=== PATIENT | male | born 1935 | race Caucasian/White ===

== ENCOUNTER 2017-09-30 09:44 | Emergency (ER) | payer MEDICARE, OTHER, SELFPAY ==
[2017-09-30 09:46] VITALS: BP 150/90; PULSE 78; RESP 18; TEMP 36.4; O2SAT 97; BMI 22.7
--- NOTE | 2017-09-30 10:15 | CT_ITS ---
STUDY: CT ABDOMEN AND PELVIS WITH CONTRAST REASON FOR EXAM: Male, 82 years old. Abdominal pain, bloody stool. No prior surgery.. RADIATION DOSAGE (If Supplied By Facility): CTDIvol = ( 14.77 ) mGy, DLP = ( 670.39 ) mGycm TECHNIQUE: Transaxial images were obtained from the dome of the diaphragm to the symphysis pubis with oral contrast. 100mL ml of Isovue 300 contrast was administered. Sagittal and coronal images were reconstructed. Individualized dose optimization techniques were used for this CT. COMPARISON: None. FINDINGS: The visualized lung bases are unremarkable. The visualized portions of the heart are within normal limits. Normal liver. Normal gallbladder and extrahepatic biliary system. Normal spleen. Normal pancreas. Normal bilateral adrenal glands. Normal right kidney. Normal left kidney. There is a small hiatal hernia. Normal small intestine. There are multiple colonic diverticula consistent with diverticulosis. There is non-visualization of the appendix. There is diffuse atherosclerotic calcification of the abdominal aorta, without a demonstrated aneurysm. Normal inferior vena cava. Normal retroperitoneum. Normal urinary bladder. Normal abdominal wall. There are diffuse degenerative changes of the visualized lumbar spine. CT/Abdomen/Pelvis WITH Contrast IMPRESSION: Extensive diverticulosis. Mild aortoiliac atherosclerosis. Electronically Signed: Lidya Fierro MD at 12:39 EST Tel , Service support ,
[2017-09-30] MEDS: 0.9% Normal Saline 1,000 ML 1000 ML IV (10:35)
[2017-09-30 10:40] LABS: Absolute Lymphocyte Count 0.49 X10^3/ul (0.83-4.51); Absolute Neutrophil Count 4.5 X10^3/uL (2.0-7.7); Basophil# 0.03 X10^3/uL; Basophil% 0.5 % (0-1); Eosinophil# 0.58 X10^3/uL; Eosinophils% 9.4 % (0-5); Hematocrit 43.5 % (40-54); Hemoglobin 14.1 g/dl (13.0-16.5); Lymphocyte # 0.49 X10^3/ul (4.0); Mean Corp Hgb Conc 32.4 g/gl (32-36); Mean Corpuscular Hgb 30.8 pg (27.0-32.0); Mean Platelet Vol. 8.7 fl (6.2-12.0); Monocyte# 0.58 X10^3/uL; Monocyte% 9.4 % (0-10); Neutrophil # 4.46 X10^3/uL (2.7-7.7); Neutrophil % 72.5 % (47-70); Platelet Count 180 K/mm3 (150-450); RBC Distribution Width CV 12.9 % (11.6-14.6); RBC Distribution Width SD 44.5 fl (35.1-43.9); Red Blood Count 4.58 M/mm3 (4.6-6.2); White Blood Count 6.2 K/mm3 (4.4-11.0)
[2017-09-30 10:41] LABS: Differential Indicated SCAN CRITERIA MET; POSITIVE COUNT NO; POSITIVE DIFFERENTIAL YES; POSITIVE MORPHOLOGY NO
[2017-09-30 10:46] LABS: Prothrombin Time (Protime)PT. 12.9 SECONDS (11.7-14.9)
[2017-09-30 10:56] LABS: ALB/GLOB Ratio 0.9 RATIO (0.9-2.4); AST(SGOT) 24 U/L (15-37); Alanine Aminotransfer ALT/SGPT 21 U/L (16-61); Albumin, Serum 3.3 g/dL (3.2-5.0); Alkaline Phosphatase 91 U/L (45-117); Anion Gap 7 (5-15); BUN 12 mg/dL (7-18); BUN/Creat Ratio 11.8 RATIO (10-20); Calcium,Total 8.8 mg/dL (8.5-10.1); Chloride 107 mmol/L (98-107); Creatinine, Serum 1.02 mg/dL (0.70-1.30); EST Glomerular Filtration Rate 75 mL/min (>60); Est Glom Filt Rate - Afr Amer 90 mL/min (>60); Estimated Creatinine Clearance 55.47 ml/min; Globulin 3.6 g/dL (2.2-4.2); Glucose 92 mg/dL (74-106); Lipase 136 U/L (73-393); Potassium 4.1 mmol/L (3.5-5.1); Protein, Total 6.9 g/dL (6.4-8.2); Sodium Level 142 mmol/L (136-145)
[2017-09-30 12:01] VITALS: BP 121/71; PULSE 78; RESP 16; O2SAT 98
[2017-09-30 12:04] LABS: Bacteria 0 SEEN /hpf (None Seen); Color, Urine Yellow (Yellow); Glucose, Dipstick Normal (Normal); Ketone-Dipstick Negative (Negative); Leukocyte Esterase-Dipstick Negative /ul (Negative); Mucous, Urine 0 SEEN /hpf (<or=2+); Nitrite-Dipstick Negative (Negative); Occult Blood-Urine Negative /ul (Negative); Protein-Dipstick Negative (Negative); Squamous Epithelial Cells - UA 0 SEEN /hpf (0-5); Urine Bilirubin Dipstick Negative (Negative); Urine Clarity Clear (Clear); Urine Urobilinogen Normal (Normal); White Blood Cells 0 SEEN /hpf (0-5)
[2017-09-30 12:14] LABS: Red Blood Cells-Urine 0 SEEN /hpf (0-5)
--- NOTE | 2017-09-30 13:47 | ED.RN ---
PT VERBALIZED HIS BM WAS MORE NORMAL WITH MINIMAL SIZE CLOT AND HE WAS COMFORTABLE GOING HOME. DR DONNY PEREYRA.
--- NOTE | 2017-09-30 14:10 | ED.VISSUMM ---
- ER Visit Summary Date of Service: 09/30/17 Chief Complaint: Abdominal pain diarrhea and bright red blood per rectum. History of Present Illness: The patient is a 82 M who presents with abdominal pain. It initially began yesterday. He describes this as gas pains. He complains of diffuse cramping abdominal pain which is currently only mild. He had several episodes of watery diarrhea yesterday and today. However earlier today he had one episode where he passed bright red blood per rectum and a few golf ball sized clots. He has passed small clots before but never this size. He denies any chest pain shortness of breath lightheadedness. He is not anticoagulated. He actually has had diarrhea since that time without any blood. Physical Examination: Afebrile vitals are normal Moist mucous membranes Heart regular rate and rhythm Lungs are clear Abdomen soft nondistended he does have some mild left lower quadrant and mid abdominal tenderness but no guarding no rebound Rectal exam is nontender with light brown stool no gross blood Test Results: CBC BMP hepatic function lipase INR urinalysis all normal. Hemoccult positive. CT of the abdomen shows extensive diverticulosis but otherwise normal. Emergency Department Course and Treatment: Patient has remained hemodynamically stable here. He had one episode where he had the tiniest amount of blood right at the end of a normal stool. He has normal hemoglobin normal heart rate. I discussed with him hospital observation versus close outpatient follow-up. The patient agrees with plan for close outpatient follow-up. I did also spoke to Dr. Cody who would be able to see the patient as an outpatient for follow-up and colonoscopy. Patient was given clear instructions of signs and symptoms to monitor for and conditions under which to return to the emergency department. Patient discharged in good condition. She only given his report of cramping and diarrhea we will also cover for possible diverticulitis as well with Flagyl. Treatment Plan: [] Disposition: Discharge Impression: Lower GI bleed, likely diverticular Diverticulitis This note was generated with [employer] dictation software. It may contain incorrect words, spelling, and punctuation that were not noted in review of the chart prior to signing ED Disposition - Plan for ED Patient: Chief Complaint: GI Bleed Referrals: Jak Mahmood DO [Primary Care Provider] -
--- NOTE | 2017-09-30 14:14 | ED.DCSUM_ITS ---
- ER Visit Summary Date of Service: 09/30/17 Chief Complaint: Abdominal pain diarrhea and bright red blood per rectum. History of Present Illness: The patient is a 82 M who presents with abdominal pain. It initially began yesterday. He describes this as gas pains. He complains of diffuse cramping abdominal pain which is currently only mild. He had several episodes of watery diarrhea yesterday and today. However earlier today he had one episode where he passed bright red blood per rectum and a few golf ball sized clots. He has passed small clots before but never this size. He denies any chest pain shortness of breath lightheadedness. He is not anticoagulated. He actually has had diarrhea since that time without any blood. Physical Examination: Afebrile vitals are normal Moist mucous membranes Heart regular rate and rhythm Lungs are clear Abdomen soft nondistended he does have some mild left lower quadrant and mid abdominal tenderness but no guarding no rebound Rectal exam is nontender with light brown stool no gross blood Test Results: CBC BMP hepatic function lipase INR urinalysis all normal. Hemoccult positive. CT of the abdomen shows extensive diverticulosis but otherwise normal. Emergency Department Course and Treatment: Patient has remained hemodynamically stable here. He had one episode where he had the tiniest amount of blood right at the end of a normal stool. He has normal hemoglobin normal heart rate. I discussed with him hospital observation versus close outpatient follow- up. The patient agrees with plan for close outpatient follow-up. I did also spoke to Dr. Cody who would be able to see the patient as an outpatient for follow-up and colonoscopy. Patient was given clear instructions of signs and symptoms to monitor for and conditions under which to return to the emergency department. Patient discharged in good condition. She only given his report of cramping and diarrhea we will also cover for possible diverticulitis as well with Flagyl. Treatment Plan: [] Disposition: Discharge Impression: Lower GI bleed, likely diverticular Diverticulitis This note was generated with [employer] dictation software. It may contain incorrect words, spelling, and punctuation that were not noted in review of the chart prior to signing ED Disposition - Plan for ED Patient: Chief Complaint: GI Bleed Referrals: Jak Mahmood DO [Primary Care Provider] -
--- NOTE | 2017-09-30 14:14 | ED.DEP ---
ED Disposition - Plan for ED Patient: Chief Complaint: GI Bleed Instructions: ED Diverticulitis, ED Hematochezia Stable Prescriptions: Metronidazole [Flagyl] 500 mg PO Q8H #30 tab Referrals: Jak Mahmood DO [Primary Care Provider] - Tim Hameed MD [STAFF PHYSICIAN] -
[2017-09-30 14:21] VITALS: BP 122/69; PULSE 54; RESP 16; O2SAT 98
== END 2017-09-30 14:22 | disposition home or self-care (01) ==
PROVIDERS: Emergency Provider Emergency Medicine; Family Provider Student in an Organized Health Care Education/Training Program; PCP Student in an Organized Health Care Education/Training Program
DX: K92.2 Gastrointestinal hemorrhage, unspecified (principal); K57.92 Diverticulitis of intestine, part unspecified, without perforation or abscess without bleeding; K21.9 Gastro-esophageal reflux disease without esophagitis; Z79.82 Long term (current) use of aspirin; Z79.899 Other long term (current) drug therapy
CPT/HCPCS: 74177; 80053; 81001; 82274; 83690; 85025; 85610; 86850; 86900; 96360; 96361; 99283; J7030; Q9967; A4216

== ENCOUNTER 2018-04-13 14:40 | Emergency (ER) | payer MEDICARE, OTHER, SELFPAY ==
[2018-04-13 14:41] VITALS: BP 143/84; PULSE 90; RESP 16; TEMP 37.1; O2SAT 97; BMI 22.3
--- NOTE | 2018-04-13 15:14 | ED.VISSUMM ---
- ER Visit Summary Date of Service: 04/13/18 Chief Complaint: Abdominal pain History of Present Illness: The patient is a 83 M presents to the emergency department with approximately 24 hours of abdominal pain. Patient states earlier this week, he had some constipation. He states that that seemed to resolve any of 2 days of normal bowel movements. He states he then had a day of loose watery diarrhea. Over the past 24 hours, he has had worsening pain mostly in his left lower quadrant. He does have history of diverticulitis. He has had prior appendectomy, but it was in the 50s. He denies any fevers or chills. He denies any nausea or vomiting. He has not taken anything for his pain. Physical Examination: Vital signs reviewed General: Well-nourished, well-developed Head: Normocephalic, atraumatic Eyes: Pupils equal and reactive, extraocular muscles intact Neck, supple, no lymphadenopathy Heart: Regular rate and rhythm Respiratory: No distress, clear bilaterally Abdomen: Soft, mildly tender in the left lower quadrant without rebound, nondistended, no peritoneal signs Back: Nontender Extremities: Nontender, no edema, no cords Skin: Normal color no rash Neuro: Alert and oriented, no focal or lateralizing deficits Test Results: [] Emergency Department Course and Treatment: The patient does have some pain in his left lower quadrant, but he is no rebound or guarding. He declined any analgesics. IV was established. Screening labs were obtained were unremarkable. Patient underwent CT of the abdomen and pelvis. He does have very early diverticulitis of the sigmoid colon corresponding to his area of maximal pain. Based on the patient's medication allergies, he will be treated with Flagyl and Bactrim. Is given his first dose here. He declined analgesics for home. He will continue a high-fiber diet. He was counseled on concerning symptoms and reasons to return. I do want him reevaluated within the next 48 hours. He is comfortable this plan of care. Treatment Plan: [] Disposition: Discharge Impression: 1. Acute diverticulitis This note was generated with [employer] software. It may contain incorrect words, spelling, and punctuation that were not noted in review of the chart prior to signing ED Disposition - Plan for ED Patient: Disposition: Home or Assisted Living Chief Complaint: Abd Pain Instructions: ED Diverticulitis Prescriptions: Metronidazole [Flagyl] 500 mg PO Q8H #21 tab Smz/Tmp Ds [Bactrim Ds] 1 tab PO BID #14 tab Referrals: Jak Mahmood DO [Primary Care Provider] -
[2018-04-13] MEDS: 0.9% Normal Saline 1,000 ML 1000 ML IV (15:18)
[2018-04-13 15:23] LABS: Bacteria 0 SEEN /hpf (None Seen); Color, Urine Yellow (Yellow); Glucose, Dipstick Normal (Normal); Ketone-Dipstick 5 mg/dl (Negative); Leukocyte Esterase-Dipstick Negative /ul (Negative); Mucous, Urine 0 SEEN /hpf (<or=2+); Nitrite-Dipstick Negative (Negative); Occult Blood-Urine Negative /ul (Negative); Protein-Dipstick Negative (Negative); Red Blood Cells-Urine 0 SEEN /hpf (0-5); Specific Gravity, Urine 1.015 (1.002-1.030); Squamous Epithelial Cells - UA 0 SEEN /hpf (0-5); Urine Bilirubin Dipstick Negative (Negative); Urine Clarity Clear (Clear); Urine Urobilinogen Normal (Normal); Urine pH 6.5 (5.0 - 8.0); White Blood Cells 0 SEEN /hpf (0-5)
[2018-04-13 15:34] LABS: Absolute Lymphocyte Count 1.04 X10^3/ul (0.83-4.51); Absolute Neutrophil Count 5.8 X10^3/uL (2.0-7.7); Basophil# 0.04 X10^3/uL; Basophil% 0.5 % (0-1); Eosinophil# 0.28 X10^3/uL; Eosinophils% 3.5 % (0-5); Hematocrit 42.3 % (40-54); Hemoglobin 13.9 g/dl (13.0-16.5); Lymphocyte # 1.04 X10^3/ul (4.0); Lymphocyte % 12.9 % (19-41); Mean Corp Hgb Conc 32.9 g/gl (32-36); Mean Corpuscular Hgb 30.8 pg (27.0-32.0); Mean Corpuscular Volume 93.8 fL (80-94); Mean Platelet Vol. 8.7 fl (6.2-12.0); Monocyte# 0.87 X10^3/uL; Monocyte% 10.8 % (0-10); Neutrophil # 5.81 X10^3/uL (2.7-7.7); Neutrophil % 72.1 % (47-70); Platelet Count 267 K/mm3 (150-450); RBC Distribution Width CV 12.6 % (11.6-14.6); RBC Distribution Width SD 42.7 fl (35.1-43.9); Red Blood Count 4.51 M/mm3 (4.6-6.2); White Blood Count 8.1 K/mm3 (4.4-11.0)
[2018-04-13 15:35] LABS: POSITIVE COUNT NO; POSITIVE DIFFERENTIAL NO; POSITIVE MORPHOLOGY NO
[2018-04-13 15:52] LABS: AST(SGOT) 27 U/L (15-37); Alanine Aminotransfer ALT/SGPT 19 U/L (16-61); Albumin, Serum 3.6 g/dL (3.2-5.0); Alkaline Phosphatase 91 U/L (45-117); Anion Gap 9 (5-15); BUN 10 mg/dL (7-18); BUN/Creat Ratio 9.8 RATIO (10-20); Chloride 103 mmol/L (98-107); Creatinine, Serum 1.02 mg/dL (0.70-1.30); EST Glomerular Filtration Rate 75 mL/min (>60); Est Glom Filt Rate - Afr Amer 90 mL/min (>60); Estimated Creatinine Clearance 55.03 ml/min; Globulin 3.6 g/dL (2.2-4.2); Glucose 87 mg/dL (74-106); Protein, Total 7.2 g/dL (6.4-8.2); Sodium Level 140 mmol/L (136-145)
[2018-04-13] MEDS: Smz/Tmp Ds Tablet 1 TABLET PO (17:03)
[2018-04-13] MEDS: metroNIDAZOLE 500 MG Tablet PO (17:03)
[2018-04-13 17:04] VITALS: RESP 12
== END 2018-04-13 17:05 | disposition home or self-care (01) ==
PROVIDERS: Emergency Provider Emergency Medicine; Family Provider Student in an Organized Health Care Education/Training Program; PCP Student in an Organized Health Care Education/Training Program
DX: K57.92 Diverticulitis of intestine, part unspecified, without perforation or abscess without bleeding (principal); R19.7 Diarrhea, unspecified; K59.00 Constipation, unspecified; Z79.82 Long term (current) use of aspirin; Z79.899 Other long term (current) drug therapy
CPT/HCPCS: 74177; 80053; 81001; 85025; 99284; Q9967

== ENCOUNTER 2018-12-10 12:38 | Emergency (ER) | payer MEDICARE, OTHER, SELFPAY ==
[2018-12-10 12:39] VITALS: BP 140/92; PULSE 81; RESP 16; TEMP 36.8; O2SAT 98; BMI 21.6
[2018-12-10] MEDS: 0.9% Normal Saline 1,000 ML 125 ML IV (14:06)
[2018-12-10 14:30] LABS: Absolute Lymphocyte Count 0.85 X10^3/ul (0.83-4.51); Absolute Neutrophil Count 5.8 X10^3/uL (2.0-7.7); Basophil# 0.03 X10^3/uL; Basophil% 0.4 % (0-1); Eosinophil# 0.16 X10^3/uL; Eosinophils% 2.1 % (0-5); Hematocrit 41.7 % (40-54); Lymphocyte # 0.85 X10^3/ul (4.0); Lymphocyte % 11.2 % (19-41); Mean Corp Hgb Conc 33.6 g/gl (32-36); Mean Corpuscular Hgb 31.4 pg (27.0-32.0); Mean Corpuscular Volume 93.5 fL (80-94); Monocyte# 0.74 X10^3/uL; Monocyte% 9.8 % (0-10); Neutrophil # 5.79 X10^3/uL (2.7-7.7); Neutrophil % 76.4 % (47-70); POSITIVE COUNT NO; POSITIVE DIFFERENTIAL NO; POSITIVE MORPHOLOGY NO; Platelet Count 251 K/mm3 (150-450); RBC Distribution Width CV 12.8 % (11.6-14.6); RBC Distribution Width SD 43.2 fl (35.1-43.9); Red Blood Count 4.46 M/mm3 (4.6-6.2); White Blood Count 7.6 K/mm3 (4.4-11.0)
[2018-12-10 14:34] LABS: Anion Gap 7 (5-15); BUN 14 mg/dL (7-18); BUN/Creat Ratio 13.6 RATIO (10-20); Calcium,Total 8.9 mg/dL (8.5-10.1); Chloride 104 mmol/L (98-107); Creatinine, Serum 1.03 mg/dL (0.70-1.30); EST Glomerular Filtration Rate 74 mL/min (>60); Est Glom Filt Rate - Afr Amer 89 mL/min (>60); Estimated Creatinine Clearance 51.24 ml/min; Glucose 97 mg/dL (74-106); Potassium 4.1 mmol/L (3.5-5.1); Sodium Level 141 mmol/L (136-145)
[2018-12-10 15:04] LABS: Lactic Acid 0.7 mmol/L (0.4-2.0)
[2018-12-10 15:09] VITALS: BP 134/83; PULSE 60; RESP 16; O2SAT 99
--- NOTE | 2018-12-10 15:21 | ED.VISSUMM ---
- ER Visit Summary Date of Service: 12/10/18 Chief Complaint: [Rectal bleeding] History of Present Illness: The patient is a 83 M [presents to the emergency department with rectal bleeding that started a week and a half ago. Patient's had bright red blood noted within the stool and at times the blood will be in the toilet bowl discoloring the water. Patient denies any abdominal pain. Patient states that this morning was feeling a little bit lightheaded and he checked his blood pressure and it was 111/71 with a pulse of 78. Patient states that usually his blood pressure is in the 1 20-1 30 systolic range. Patient denies any fevers. His not had any nausea or vomiting. He denies any hematemesis. Patient has had prior colonoscopies. He is not sure how long ago his last colonoscopy was.] Physical Examination: [HEENT-PERRLA, EOMI. Cranial nerves II through XII grossly intact. TMs clear. Mucous membranes moist. No adenopathy. Cardiovascular-regular rate and rhythm without murmur or ectopy Lungs-clear to auscultation, chest wall stable without crepitus or subcu emphysema Abdomen-normoactive bowel sounds, soft, nontender, no rebound or rigidity, no peritoneal signs. Rectal exam-no hemorrhoids or fissures noted. No masses palpated in the rectal vault. There is minimal stool in the rectal vault however did test Hemoccult positive. Extremities-intact ?4, normal range of motion, normal pulses, atraumatic ] Test Results: [CBC with differential obtained showed a white blood cell count 7.6, hemoglobin 14, hematocrit 42, platelets 251. Chemistries were unremarkable. Lactate was 0.7. Hemoccult was positive. Orthostatic vital signs were negative.] Emergency Department Course and Treatment: [Case was discussed with Dr. Tim Hameed is on for general surgery who was able to look patient's medical records up and noted that last September patient had a colonoscopy by Dr. Cody performed and it showed some diverticuli otherwise nothing acute.] Treatment Plan: [Follow-up with general surgery Dr. Cody. Patient advised to return if persistent heavy bleeding, lightheadedness, weakness, or condition should worsen anyway. ] Disposition: [Discharged home in stable condition] Impression: [Lower GI bleed-stable] This note was generated with [employer] software. It may contain incorrect words, spelling, and punctuation that were not noted in review of the chart prior to signing ED Disposition - Plan for ED Patient: Referrals: Jak Mahmood DO [Primary Care Provider] -
--- NOTE | 2018-12-10 15:25 | ED.DCSUM_ITS ---
- ER Visit Summary Date of Service: 12/10/18 Chief Complaint: [Rectal bleeding] History of Present Illness: The patient is a 83 M [presents to the emergency department with rectal bleeding that started a week and a half ago. Patient's had bright red blood noted within the stool and at times the blood will be in the toilet bowl discoloring the water. Patient denies any abdominal pain. Patient states that this morning was feeling a little bit lightheaded and he checked his blood pressure and it was 111/71 with a pulse of 78. Patient states that usually his blood pressure is in the 1 20-1 30 systolic range. Patient denies any fevers. His not had any nausea or vomiting. He denies any hematemesis. Patient has had prior colonoscopies. He is not sure how long ago his last colonoscopy was.] Physical Examination: [HEENT-PERRLA, EOMI. Cranial nerves II through XII grossly intact. TMs clear. Mucous membranes moist. No adenopathy. Cardiovascular-regular rate and rhythm without murmur or ectopy Lungs-clear to auscultation, chest wall stable without crepitus or subcu e mphysema Abdomen-normoactive bowel sounds, soft, nontender, no rebound or rigidity, no peritoneal signs. Rectal exam-no hemorrhoids or fissures noted. No masses palpated in the rectal vault. There is minimal stool in the rectal vault however did test Hemoccult positive. Extremities-intact ?4, normal range of motion, normal pulses, atraumatic ] Test Results: [CBC with differential obtained showed a white blood cell count 7.6, hemoglobin 14, hematocrit 42, platelets 251. Chemistries were unremarkable. Lactate was 0.7. Hemoccult was positive. Orthostatic vital sign s were negative.] Emergency Department Course and Treatment: [Case was discussed with Dr. Tim Hameed is on for general surgery who was able to look patient's medical records up and noted that last September patient had a colonoscopy by Dr. Cody performed and it showed some diverticuli otherwise nothing acute.] Treatment Plan: [Follow-up with general surgery Dr. Cody. Patient advised to return if persistent heavy bleeding, lightheadedness, weakness, or condition should worsen anyway. ] Disposition: [Discharged home in stable condition] Impression: [Lower GI bleed-stable] This note was generated with Dragon dictation software. It may contain incorrect words, spelling, and punctuation that were not noted in review of the chart prior to signing ED Disposition - Plan for ED Patient: Referrals: Jak Mahmood DO [Primary Care Provider] -
--- NOTE | 2018-12-10 15:25 | ED.DEP ---
ED Disposition - Plan for ED Patient: Instructions: ED Hematochezia Stable Referrals: Jak Mahmood DO [Primary Care Provider] - Tim Hameed MD [STAFF PHYSICIAN] - 3-5 Days
[2018-12-10 15:30] VITALS: BP 125/90; BP 133/98; BP 148/85; PULSE 64; PULSE 68
--- NOTE | 2018-12-10 15:42 | ED.RN ---
PT GIVEN APPOINTMENT FOR TOMORROW MORNING. PT AND FAMILY VERBALIZE UNDERSTANDING OF WRITTEN AND VERBAL D/C INSTRUCTIONS.
== END 2018-12-10 15:44 | disposition home or self-care (01) ==
PROVIDERS: Emergency Provider Emergency Medicine; Family Provider Student in an Organized Health Care Education/Training Program; PCP Student in an Organized Health Care Education/Training Program
DX: K92.2 Gastrointestinal hemorrhage, unspecified (principal); Z79.899 Other long term (current) drug therapy
CPT/HCPCS: 36415; 80048; 82274; 83605; 85025; 86850; 86900; 96360; 96361; 99283

== ENCOUNTER 2019-05-07 11:18 | Inpatient (IN) | payer MEDICARE, OTHER, SELFPAY ==
[2019-05-07] VITALS (8 sets, daily range): BP systolic 131–165; BP diastolic 66–80; PULSE 66–79; RESP 12–18; TEMP 36.6–38; O2SAT 93–97; BMI 21.7; BMI 21.8
--- NOTE | 2019-05-07 12:04 | EKG12_ITS ---
Test Reason : CONFUSION Blood Pressure : / mmHG Vent. Rate : 069 BPM Atrial Rate : 069 BPM P-R Int : 202 ms QRS Dur : 078 ms QT Int : 356 ms P-R-T Axes : 064 055 063 degrees QTc Int : 381 ms Normal sinus rhythm Normal ECG Confirmed by BIBI SHETH, JOSHUA ([id number]), map editor SHANNON REYES ([id number]) on 05/09/2019 1:41:11 PM Referred By: Taras Sal Confirmed By:KENZIE MTZ MD
--- NOTE | 2019-05-07 12:04 | CT_ITS ---
STUDY: CT BRAIN WITHOUT CONTRAST REASON FOR EXAM: Male, 84 years old. Headaches. Chronic dizziness. RADIATION DOSAGE (If Supplied By Facility): CTDIvol = ( 44.99 ) mGy, DLP = ( 796.11 ) mGycm TECHNIQUE: Transaxial CT imaging of the brain was performed without administration of intravenous contrast material. Individualized dose optimization techniques were used for this CT. COMPARISON: Comparison is made with prior study dated January 13, 2016. FINDINGS: Normal soft tissue structures. Normal calvarium. There is mild cerebral atrophy with widening of the extra-axial spaces and ventricular dilatation. There are areas of decreased attenuation within the white matter tracts of the supratentorial brain, consistent with microvascular disease changes. Stable focal area of decreased attenuation in the insular cortex of the right temporal lobe suggestive of an old lacunar infarct. Normal brainstem. Normal cerebellum. There is no intracranial hemorrhage. There are no findings of an acute ischemic infarction. Normal visualized paranasal sinuses. CT/Brain/Head without Contrast IMPRESSION: Chronic involutional changes of the brain. Electronically Signed: Jd Sanchez, at 12:34 EDT , Service support ,
--- NOTE | 2019-05-07 12:05 | ED.VIS.GEN ---
History of Present Illness Chief Complaint: Confusion Informant: Patient, Family Onset: Days Narrative: Patient presents with family secondary to chronic upper abdominal pain that has worsened recently. Patient states that he has been drooling sometimes when he bends over. He states sometimes he can swallow the saliva down. He has not had any choking or difficulty with eating. He was concerned he may be having a stroke. He states yesterday his upper abdominal pain seemed to be worse. It did not improve with antacids. Today pain was somewhat improved. Past Medical History - Allergies and Home Meds Allergies/Adverse Reactions: Allergies levofloxacin [From Levaquin] Allergy (Intermediate, Verified 05/07/19 11:20) Vomiting Penicillins Allergy (Intermediate, Verified 05/07/19 11:20) Hives lactose Allergy (Verified 05/07/19 11:20) Unknown Gadolinium-MRI Contrast Medium [MRI] Adverse Reaction (Verified 05/07/19 12:08) Other CONFUSION, MEMORY OSS, IN A FOG, HEADACHE, OFF BALANCE Prior records reviewed: Yes Past Medical History: - - Reviewed Lives: With Family Smoking Status: Former smoker - Family History Maternal Family History: Reports: - - Denies known paternal medical history including cardiac history. Paternal Family History: Reports: - - Denies known paternal medical history including cardiac history. Review of Systems General: Denies: Chills, Fever Eyes: Denies: Visual changes - bilaterally ENT: Denies: Bilateral ear pain Cardiovascular: Denies: Chest pain Respiratory: Denies: Dyspnea, Cough Gastrointestinal: Reports: Abdominal pain. Denies: Nausea, Vomiting Neurological: Reports: Weakness - Generalized weakness, problems with balance. Denies: Headache Endocrine: Denies: Polyuria, Polydipsia Hematologic: Denies: Easy bruising Allergy: Denies: Uticaria Physical Exam Vital Signs/Narrative: Vital Signs Temp Pulse Resp BP Pulse Ox 05/07/19 11:20 97.9 F 79 17 159/77 H 96 Inital Vital Signs reviewed: Yes General: Cachectic Head: Normocephalic ENT: Moist mucous membranes Neck: Supple Cardiovascular: Regular rate, Regular rhythm Respiratory: No distress, CTA bilaterally Abdomen: Soft, Normal bowel sounds, Tender - Mild epigastric tenderness.. Negative for: Guarding, Rebound tenderness Skin: Normal color Neurological: Alert, Oriented x3, - - No focal deficits. NIH equals 0. Psychological: Normal affect Diagnostic/Tx/Re-eval Impressions Brain CT 05/07/19 12:04 IMPRESSION: Chronic involutional changes of the brain. Electronically Signed: Jd Sanchez, at 12:34 EDT , Service support , 05/07/19 12:04 Brain/Head without Contrast [CT] Stat Laboratory Results 05/07/19 05/07/19 11:40 11:40 WBC 7.6 RBC 4.39 L Hgb 13.3 Hct 41.1 MCV 93.6 MCH 30.3 MCHC 32.4 RDW Std Deviation 42.3 RDW Coeff of Rylie 12.2 Plt Count 217 MPV 8.8 Immature Gran % (Auto) 0.300 Neut % (Auto) 80.7 H Lymph % (Auto) 9.1 L [place] % (Auto) 8.6 Eos % (Auto) 0.8 Baso % (Auto) 0.5 Absolute Neuts (auto) 6.1 Absolute Lymphs (auto) 0.69 L Nucleated RBC % 0 Sodium 135 L Potassium 4.3 Chloride 104 Carbon Dioxide 28.0 Anion Gap 3 L BUN 14 Creatinine 1.09 Estim Creat Clear Calc 47.89 Est GFR (MDRD) Af Amer 83 Est GFR (MDRD) Non-Af 69 BUN/Creatinine Ratio 12.8 Glucose 99 Calcium 8.8 Total Bilirubin 0.60 Direct Bilirubin 0.16 AST 20 ALT 15 L Alkaline Phosphatase 108 Total Protein 7.1 Albumin 3.4 Globulin 3.7 Lipase 94 - EKG Initial EKG Interpretation: Sinus Rhythm - Sinus at 69 with no acute ischemia. - Medical Decision Making Patient initially had concerns of stroke, but states he is able to swallow without difficulty. When I first went into talk to him, he seemed to have some trouble with word finding and appeared frustrated. When he would slow down and not try to ricardo his speech was understandable. Patient had good strength and sensation in all extremities. No facial droop was noted. Patient was able to reach for items without difficulty. Test results were discussed with patient and family at bedside. I spoke with patient's primary care physician, Dr. Mahmood. She states that he and his both have had a decline over the past some time. The patient's biggest concern at this time seems to be his upper abdominal pain. Patient did have a EGD and colonoscopy in November. It does not sound like the hiatal hernia has significantly changed since his prior scope. He will continue his Prilosec and we will add Carafate to see if that helps control his symptoms better. Patient is to follow-up in the office next week. Addendum: Patient got up to use the restroom prior to discharge. I was notified by nursing staff that he was extremely unsteady on his feet and nearly fell 3 times standing in front of the commode. Nurses states she had to unfasten the patient's pants and help him get his penis out so he could even urinate, he was unable to even do this on his own. Patient was taken back to his room. I spoke with the patient's daughter. She states that they have declined her offers to move in with them to help care for them. She is going back and forth between [facility] and attempts to care for them. Social work met with them. We have significant concerns about his safety at home. has dementia herself and is not able to help him significantly. I will speak with hospitalist regarding admission overnight. ED Disposition - Plan for ED Patient: Disposition: [facility] Diagnosis: Reflux gastritis, Generalized weakness, Unsteady gait
[2019-05-07 12:27] LABS: AST(SGOT) 20 U/L (15-37); Alanine Aminotransfer ALT/SGPT 15 U/L (16-61); Albumin, Serum 3.4 g/dL (3.2-5.0); Alkaline Phosphatase 108 U/L (45-117); Anion Gap 3 (5-15); BUN 14 mg/dL (7-18); BUN/Creat Ratio 12.8 RATIO (10-20); Bilirubin, Direct 0.16 mg/dL (0.00-0.30); Calcium,Total 8.8 mg/dL (8.5-10.1); Chloride 104 mmol/L (98-107); Creatinine, Serum 1.09 mg/dL (0.70-1.30); EST Glomerular Filtration Rate 69 mL/min (>60); Est Glom Filt Rate - Afr Amer 83 mL/min (>60); Estimated Creatinine Clearance 47.89 ml/min; Globulin 3.7 g/dL (2.2-4.2); Glucose 99 mg/dL (74-106); Lipase 94 U/L (73-393); Potassium 4.3 mmol/L (3.5-5.1); Protein, Total 7.1 g/dL (6.4-8.2); Sodium Level 135 mmol/L (136-145)
[2019-05-07] MEDS: 0.9% Normal Saline 1,000 ML 15 ML IV (12:31)
[2019-05-07 12:33] LABS: Absolute Lymphocyte Count 0.69 X10^3/uL (0.83-4.51); Absolute Neutrophil Count 6.1 X10^3/uL (2.0-7.7); Basophil# 0.04 X10^3/uL; Basophil% 0.5 % (0-1); Eosinophil# 0.06 X10^3/uL; Eosinophils% 0.8 % (0-5); Hematocrit 41.1 % (40-54); Hemoglobin 13.3 g/dL (13.0-16.5); Lymphocyte # 0.69 X10^3/ul (4.0); Lymphocyte % 9.1 % (19-41); Mean Corp Hgb Conc 32.4 g/dL (32-36); Mean Corpuscular Hgb 30.3 pg (27.0-32.0); Mean Corpuscular Volume 93.6 fL (80-94); Mean Platelet Vol. 8.8 fl (6.2-12.0); Monocyte# 0.65 X10^3/uL; Monocyte% 8.6 % (0-10); NRBC Flagged by Analyzer 0 % (0-5); Neutrophil # 6.12 X10^3/uL (2.7-7.7); Neutrophil % 80.7 % (47-70); Platelet Count 217 K/mm3 (150-450); RBC Distribution Width CV 12.2 % (11.6-14.6); RBC Distribution Width SD 42.3 fl (35.1-43.9); Red Blood Count 4.39 M/mm3 (4.6-6.2); White Blood Count 7.6 K/mm3 (4.4-11.0)
--- NOTE | 2019-05-07 15:45 | ED.RN ---
Patient assisted to the bathroom. Pt's gait is unsteady and patient unable to stand for prolonged periods without assistance. Patient 1 assist with voiding d/t difficulty with removing clothing. Md notified of this finding and awaiting social media editor.
--- NOTE | 2019-05-07 16:20 | CM.ED ---
Social Work Assessment Date of Assessment: 05/07/19 Informant: DR. BETANCOURT Reason for Consult: D/C PLANNING Information obtained from: PATIENT'S DAUGHTERKEYLA [phone], AND PATIENT AT BEDSIDE. Living Arrangements: PATIENT LIVES HOME WITH ( WITH HX OF PARKINSON'S DISEASE). PATIENT MAIN CAREGIVER AND DAUGHTERS ASSIST NEEDED. DAUGHTERKEYLA PRESENT AND STATES HAS BEEN STAYING WITH PATIENT AND SINCE 05/01/19. DME: PATIENT DENIES PREVIOUS USE OF ASSISTIVE DEVICE. DAUGHTER STATES PATIENT DOES HAVE WALKER IN HOME IF NEEDED. Employment/Financial: RETIRED Supports: FAMILY Social/Family Stressors: PATIENT IS MAIN CAREGIVER FOR . DAUGHTER'S ASSIST NEEDED. PER DAUGHTER, PATIENT HAS BEEN DECLINING OVER THE LAST YEAR, HOWEVER, HAS BEEN INDEPENDENT AND STILL DRIVING. DAUGHTER STATES PATIENT DROVE YESTERDAY. DAUGHTER STATES BOTH PATIENT AND HAVE BEEN DECLINING COGNITIVELY. Mental Health History: PATIENT WITH HX OF ANXIETY AND DEPRESSION. Substance Abuse History: PATIENT DECLINES HX OF SUBSTANCE ABUSE. Interventions: SOCIAL SERVICE ASSESSMENT EDUCATION AND EMOTIONAL SUPPORT PROVIDED Assessment: REFERRED BY DR. BETANCOURT D/T SAFETY CONCERNS WITH HOME GOING. PATIENT BECAME WEAK AND UNSTEADY WHILE USING THE RESTROOM, NURSE HAD TO ASSIST. MET WITH PATIENT, AND DAUGHTERKEYLA IN ROOM. INTRODUCED ROLE AND REASON FOR REFERRAL. DAUGHTER STATES RESIDES IN [place], BUT HAS BEEN STAYING WITH PATIENT AND SINCE 05/01/19. DAUGHTER STATES PATIENT AND WILL NOT ALWAYS LET FAMILY ASSIST AND IT CAN SOMETIMES BE A FIGHT. DISCUSSED CONCERNS WITH PATIENT AND IN THE HOME REQUIRES ASSISTANCE AND UNABLE TO CURRENTLY PROVIDE ASSISTANCE. DAUGHTER STATES WOULD BE ABLE TO MOVE IN WITH PATIENT AND , IF THEY WILL ALLOW. DAUGHTER STATES PATIENT NORMALLY INDEPENDENT AND ASSISTS , BUT HAS BEEN DECLINING PHYSICALLY AND COGNITIVELY. DISCUSSED ANTICIPATED ADMISSION AND OPTIONS UPON D/C FROM HOSPITAL. INFORMED PHYSICAL THERAPY WILL EVALUATE AND ADVICE NURSE/CASE MANGER WILL FOLLOW UP. ALL IN AGREEMENT WITH PLAN. DAUGHTER TO ASSIST WHILE PATIENT HOSPITALIZED. PLAN: ADMIT
--- NOTE | 2019-05-07 16:23 | NURSING ---
MED SURG VICKI FUNCTIONAL DECLINE, WEAKNESS OBS
--- NOTE | 2019-05-07 16:23 | NURSING ---
HOSPITALIST PA IN WITH PATIENT
--- NOTE | 2019-05-07 16:44 | PCM.HP.STD ---
<Antonella Godwin - Last Filed: 05/07/19 17:12> Problem List (1) Hyperlipidemia Status: Chronic (2) HTN (hypertension) Status: Chronic (3) GERD (gastroesophageal reflux disease) Status: Chronic (4) Depression with anxiety Status: Chronic History of Present Illness Date of Admission: 05/07/19 Chief Complaint: Weakness, dysarthria/expressive aphasia The patient is a 84 year old M who presents to the emergency room due to weakness, dysarthria and expressive aphasia. Patient able to follow commands during his exam but unable to communicate HPI. He does nod his head yes and no during questioning. Daughter at bedside reports patient noticed drooling during the day today which he was unable to control. She also states he had difficulty communicating and was generally weak. He is normally independent and well functioning at home. Daughter denies history of confusion or significant weakness at home. Daughter and at bedside deny noticeable unilateral weakness, facial droop. 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 Past Medical History Past Medical History (Chronic Problems): Chronic Problems Hyperlipidemia (Chronic) HTN (hypertension) (Chronic) GERD (gastroesophageal reflux disease) (Chronic) Depression with anxiety (Chronic) Allergies levofloxacin [From Levaquin] Allergy (Intermediate, Verified 05/07/19 11:20) Vomiting Penicillins Allergy (Intermediate, Verified 05/07/19 11:20) Hives lactose Allergy (Verified 05/07/19 11:20) Unknown Gadolinium-MRI Contrast Medium [MRI] Adverse Reaction (Verified 05/07/19 12:08) Other CONFUSION, MEMORY OSS, IN A FOG, HEADACHE, OFF BALANCE Home Medications: Ambulatory Orders Medication Instructions Recorded Multivitamins,Therapeutic 1 tablet PO DAILY 01/13/16 [Multivitamin] Psyllium [Metamucil] 1 packet PO DAILY 01/13/16 Pyridoxine HCl [Vitamin B-6] 100 mg PO DAILY 01/13/16 Flaxseed Oil/Bronson 3,6,9 [Sv 1 each PO DAILY 04/12/16 Flaxseed Oil 1,300 mg Sftgl] Omeprazole [Prilosec] 20 mg PO DAILY 04/12/16 Cholecalciferol (Vitamin D3) 5,000 unit PO DAILY 04/13/18 [Vitamin D3] Cyanocobalamin (Vitamin B-12) 2,000 mcg PO DAILY 04/13/18 [Vitamin B-12] Simvastatin [Zocor] 20 mg PO DAILY 04/13/18 Sertraline HCl 50 mg PO DAILY 12/10/18 Lorazepam [Ativan] 0.5 mg PO BID PRN PRN 05/07/19 Surgical History: - - Appendectomy, shoulder/rotator cuff surgery. Lives: Spouse/ Significant Other Smoking Status: Former smoker Alcohol: None Drugs: None - *Family History Maternal History Items: - - Denies known paternal medical history including cardiac history. Paternal History Items: - - Denies known paternal medical history including cardiac history. Review of Systems Constitutional: Denies: Chills, Fever, Weight Change HEENT: Denies: Head Aches, Sinus Congestion, Sinus Drainage Cardiovascular: Denies: Chest Pain, Palpitations Respiratory: Denies: Cough, Shortness of breath at rest, Sputum production Gastrointestinal: Denies: Abdominal Pain, Nausea, Vomiting Genitourinary: Denies: Dysuria Musculoskeletal: Denies: Joint Pain, Joint Tenderness Skin: Denies: Rash, Wounds Neurological: Reports: Balance problems, Slurred speech, - - Dysarthria, expressive aphasia, generalized weakness, drooling. Denies: Blurred vision, Focal weakness, Numbness, Tingling Psychiatric: Reports: Anxiety, Depression Hematologic/ Lymphatic: Denies: Easy Bruising, Easy Bleeding VTE Information - Inpt Only VTE Present on Admission: No VTE Mechan Device Prophylaxis: None VTE Pharm Prophylaxis ordered?: Yes - Physical Exam General: Alert, Oriented x3, No apparent distress HEENT: Atraumatic, PERRLA, EOMI, Normocephalic Oral: Dry Mucosa Neck: Supple, No JVD, Negative Carotid Bruits Lungs: Clear to auscultation, Normal air movement Cardiovascular: Regular rate, Regular Rhythm, Normal S1, Normal S2, No murmurs Abdomen: Bowel Sounds Present, Soft, Non Tender, Non-Distended Extremities: No clubbing, No cyanosis, No edema, Capillary Refill Less than 3 Seconds Skin: No rashes, No breakdown Musculoskeletal: No Tenderness to Palpation of Joints or Extremities Neurological: Cranial nerves II-XII grossly intact, - - Dysarthria, expressive aphasia, mild left facial droop. Psych/Mental Status: Normal Affect, Appropriate Vital Signs Temp Pulse Resp BP Pulse Ox 97.9 F 72 17 143/80 H 97 05/07/19 11:20 05/07/19 15:58 05/07/19 15:58 05/07/19 15:58 05/07/19 15:58 Oxygen Delivery Method Room Air Weight: 142 lb 13.753 oz Body Mass Index (BMI) 21.7 Intake and Output for Last 24 Hours 05/05/19 05/06/19 05/07/19 23:59 23:59 23:59 Intake Total 53.75 / 53.75 Balance 53.75 / 53.75 Laboratory Tests Past 24 Hrs 05/07/19 05/07/19 11:40 11:40 WBC 7.6 RBC 4.39 L Hgb 13.3 Hct 41.1 MCV 93.6 MCH 30.3 MCHC 32.4 RDW Std Deviation 42.3 RDW Coeff of Rylie 12.2 Plt Count 217 MPV 8.8 Immature Gran % (Auto) 0.300 Neut % (Auto) 80.7 H Lymph % (Auto) 9.1 L Brewster % (Auto) 8.6 Eos % (Auto) 0.8 Baso % (Auto) 0.5 Absolute Neuts (auto) 6.1 Absolute Lymphs (auto) 0.69 L Nucleated RBC % 0 Sodium 135 L Potassium 4.3 Chloride 104 Carbon Dioxide 28.0 Anion Gap 3 L BUN 14 Creatinine 1.09 Estim Creat Clear Calc 47.89 Est GFR (MDRD) Af Amer 83 Est GFR (MDRD) Non-Af 69 BUN/Creatinine Ratio 12.8 Glucose 99 Calcium 8.8 Total Bilirubin 0.60 Direct Bilirubin 0.16 AST 20 ALT 15 L Alkaline Phosphatase 108 Total Protein 7.1 Albumin 3.4 Globulin 3.7 Lipase 94 Assessment/Plan 1. Rule out CVA-patient with new onset dysarthria, expressive aphasia, mild left facial droop on exam. Brain CT in ER shows chronic changes. Obtain MRI of brain, MRA of head and neck. Obtain echocardiogram. Aspirin, statin. Lipid panel in a.m. PT/OT/ST. 2. Depression/Anxiety-continue lorazepam, sertraline regimen. 3. Hyperlipidemia-continue statin. 4. GERD-continue omeprazole regimen. DVT prophylaxis-Lovenox subcu This patient was seen by VLADIMIR Martínez under the supervision of Dr. Sal. <Taras Sal F - Last Filed: 05/07/19 17:21> History of Present Illness The patient is a 84 year old M [] Past Medical History Allergies levofloxacin [From Levaquin] Allergy (Intermediate, Verified 05/07/19 11:20) Vomiting Penicillins Allergy (Intermediate, Verified 05/07/19 11:20) Hives lactose Allergy (Verified 05/07/19 11:20) Unknown Gadolinium-MRI Contrast Medium [MRI] Adverse Reaction (Verified 05/07/19 12:08) Other CONFUSION, MEMORY OSS, IN A FOG, HEADACHE, OFF BALANCE - Physical Exam Vital Signs Temp Pulse Resp BP Pulse Ox 99.1 F 72 12 148/71 H 97 05/07/19 17:13 05/07/19 17:13 05/07/19 17:13 05/07/19 17:13 05/07/19 17:13 Oxygen Delivery Method Room Air Weight: 143 lb 1.28 oz Body Mass Index (BMI) 21.7 Intake and Output for Last 24 Hours 05/05/19 05/06/19 05/07/19 23:59 23:59 23:59 Intake Total 53.75 / 53.75 Balance 53.75 / 53.75 Laboratory Tests Past 24 Hrs 05/07/19 05/07/19 11:40 11:40 WBC 7.6 RBC 4.39 L Hgb 13.3 Hct 41.1 MCV 93.6 MCH 30.3 MCHC 32.4 RDW Std Deviation 42.3 RDW Coeff of Rylie 12.2 Plt Count 217 MPV 8.8 Immature Gran % (Auto) 0.300 Neut % (Auto) 80.7 H Lymph % (Auto) 9.1 L Brewster % (Auto) 8.6 Eos % (Auto) 0.8 Baso % (Auto) 0.5 Absolute Neuts (auto) 6.1 Absolute Lymphs (auto) 0.69 L Nucleated RBC % 0 Sodium 135 L Potassium 4.3 Chloride 104 Carbon Dioxide 28.0 Anion Gap 3 L BUN 14 Creatinine 1.09 Estim Creat Clear Calc 47.89 Est GFR (MDRD) Af Amer 83 Est GFR (MDRD) Non-Af 69 BUN/Creatinine Ratio 12.8 Glucose 99 Calcium 8.8 Total Bilirubin 0.60 Direct Bilirubin 0.16 AST 20 ALT 15 L Alkaline Phosphatase 108 Total Protein 7.1 Albumin 3.4 Globulin 3.7 Lipase 94 Code Visit Addendum: Dr. Sal I personally examined the patient and reviewed the chart. I agree with the above. 84-year-old male presenting from home with not feeling well. He states that he had some mild epigastric abdominal pain that is been coming and going as well as just not feeling right for the last 3 days. In the ER he had some difficulty with mobility and he almost fell when it got him up to the bathroom so they recommended admission for placement. On our exam he seemed to have a slight left facial droop which the daughter says is new and also garbled speech which she says was also new. She does not live with them and says that last he was at his normal baseline, though he has been declining in the last year along with his in terms of independent functioning and cognition. He has some aphasia as well and some dysarthria on exam he appears to have an NIH of 2 for dysarthria and a left facial palsy. We will transfer to PCU with stroke protocol and obtain an MRI and an echo in the morning, unfortunately his symptoms started 3 days ago and therefore he is out of the TPA window. OBSV E&M: [id number] Initial observation care L3
--- NOTE | 2019-05-07 17:00 | NURSING ---
Dr. Sal in patient's room at this time.
--- NOTE | 2019-05-07 17:02 | NURSING ---
This nurse in room while Dr. Sal examining patient. Pt's family states that this is not his normal, his speech is not usually garbled. Pt unable to follow most of Dr. Sal commands, speech very garbled.
--- NOTE | 2019-05-07 17:04 | NURSING ---
Nursing pipe and boiler covers supervisor updated on need for PCU bed.
--- NOTE | 2019-05-07 17:05 | NURSING ---
Pt to go to U bed 111.
--- NOTE | 2019-05-07 17:11 | NURSING ---
Report given to Vicki in PCU.
--- NOTE | 2019-05-07 17:21 | NURSING ---
Pt transferred via JIM Higginbotham, to U room 111 at this time.
--- NOTE | 2019-05-07 17:41 | ECHOD_ITS ---
Reason For Study: TIA/CVA Procedure This was a 2D Doppler, Color Flow transthoracic echocardiogram. Contrast injection was performed. Exam performed portable in patient room. Left Ventricle Normal LV size. Concentric left ventricular hypertrophy. The estimated ejection fraction is 75 %. Normal diastology for age. No regional wall motion abnormalities noted. Right Ventricle Normal RV size. Normal systolic function. Atria Normal left atrium. Normal right atrium. No doppler evidence for ASD. Bubble contrast study negative for right to left interatrial shunt. Mitral Valve There is no mitral valve stenosis. No mitral valve insufficiency. Tricuspid Valve There is no tricuspid stenosis. Unable to estimate RV systolic pressure due to insufficient tricuspid regurgitant envelope. Trivial tricuspid valve insufficiency. Aortic Valve Trisinus/trileaflet aortic valve. Aortic sclerosis, no stenosis. There is no aortic stenosis. No aortic valve insufficiency. Pulmonic Valve There is no pulmonic valvular stenosis. No pulmonic valve insufficiency. Great Vessels Normal aortic root. Pericardium/Pleural No pericardial effusion. Medication Performed a rapid injection of agitated mix of 9 cc saline and 1cc air to assess for atrial septal defect. MMode/2D Measurements & Calculations LVIDd: 3.7 cm IVSd: 1.2 cm Ao root diam: 3.7 cm LVIDs: 2.1 cm LVPWd: 1.1 cm FS: 43.4 % LAV(MOD-bp): 37.1 ml LA A4 area: 12.8 cm2 RA A4 area: 12.5 cm2 LAV(MOD-bp) Indexed: 20.9 ml/m2 LAV(MOD-sp2): 52.1 ml LAV(MOD-sp4): 26.0 ml Time Measurements MV dec time: 0.28 sec Doppler Measurements & Calculations MV E max mauro: 106.8 cm/sec Lat Peak E' Mauro: 10.8 cm/sec Med Peak E' Mauro: 8.8 cm/sec MV A max mauro: 99.8 cm/sec E/E' lat: 9.9 E/E' med: 12.1 MV E/A: 1.1 MV V2 max: 118.5 cm/sec MV P1/2t max mauro: 117.5 cm/sec Ao V2 max: 142.5 cm/sec MV max P.6 mmHg MV P1/2t: 111.6 msec Ao max P.1 mmHg MV V2 mean: 70.3 cm/sec MV dec slope: 308.5 cm/sec2 MV mean P.3 mmHg MV V2 VTI: 45.9 cm MVA(P1/2t): 2.0 cm2 LV V1 max: 105.2 cm/sec PA V2 max: 105.0 cm/sec TR max mauro: 232.5 cm/sec LV V1 max P.4 mmHg TR max P.6 mmHg Interpretation Summary The estimated ejection fraction is 75 %. Normal diastology for age. Bubble contrast study negative for right to left interatrial shunt. Ordering Physician: Antonella Godwin Referring Physician: Jak Arambula Performed By: Tomasz Herrera RCS
[2019-05-07] MEDS: 0.9% Normal Saline 1,000 ML 100 ML IV (18:49)
[2019-05-07 21:04] LABS: Bacteria 0 SEEN /hpf (None Seen); Mucous, Urine 0 SEEN /hpf (<or=2+); Squamous Epithelial Cells - UA 0 SEEN /hpf (0-5); White Blood Cells 0 SEEN /hpf (0-5)
[2019-05-07 21:13] LABS: Color, Urine Yellow (Yellow); Glucose, Dipstick Normal (Normal); Leukocyte Esterase-Dipstick Negative /ul (Negative); Nitrite-Dipstick Negative (Negative); Occult Blood-Urine Negative /ul (Negative); Protein-Dipstick 15 mg/dl (Negative); Urine Bilirubin Dipstick Negative (Negative); Urine Clarity Clear (Clear); Urine Urobilinogen Normal (Normal)
[2019-05-07 21:15] LABS: Ketone-Dipstick 150 mg/dl (Negative)
[2019-05-07 21:34] LABS: Red Blood Cells-Urine 0-5 SEEN /hpf (0-5)
[2019-05-08] VITALS (11 sets, daily range): BP systolic 129–163; BP diastolic 65–95; PULSE 65–81; RESP 16–20; TEMP 37.3–39.6; O2SAT 96–99; BMI 21.7
[2019-05-08] MEDS: 0.9% Normal Saline 1,000 ML 100 ML IV ×2 (03:59→15:28)
[2019-05-08 06:11] LABS: Absolute Lymphocyte Count 0.97 X10^3/uL (0.83-4.51); Absolute Neutrophil Count 6.3 X10^3/uL (2.0-7.7); Basophil# 0.03 X10^3/uL; Basophil% 0.4 % (0-1); Eosinophil# 0.03 X10^3/uL; Eosinophils% 0.4 % (0-5); Hematocrit 36.7 % (40-54); Lymphocyte # 0.97 X10^3/ul (4.0); Lymphocyte % 11.8 % (19-41); Mean Corp Hgb Conc 32.7 g/dL (32-36); Mean Corpuscular Hgb 30.3 pg (27.0-32.0); Mean Corpuscular Volume 92.7 fL (80-94); Mean Platelet Vol. 8.7 fl (6.2-12.0); Monocyte# 0.89 X10^3/uL; Monocyte% 10.8 % (0-10); NRBC Flagged by Analyzer 0 % (0-5); Neutrophil # 6.26 X10^3/uL (2.7-7.7); Neutrophil % 76.1 % (47-70); POSITIVE MORPHOLOGY YES; Platelet Count 195 K/mm3 (150-450); RBC Distribution Width CV 12.2 % (11.6-14.6); RBC Distribution Width SD 41.7 fl (35.1-43.9); Red Blood Count 3.96 M/mm3 (4.6-6.2); White Blood Count 8.2 K/mm3 (4.4-11.0)
[2019-05-08 06:15] LABS: Differential Indicated SCAN CRITERIA MET
[2019-05-08 06:24] LABS: ALB/GLOB Ratio 0.9 RATIO (0.9-2.4); AST(SGOT) 19 U/L (15-37); Alanine Aminotransfer ALT/SGPT 13 U/L (16-61); Alkaline Phosphatase 91 U/L (45-117); Anion Gap 9 (5-15); BUN 14 mg/dL (7-18); BUN/Creat Ratio 13.6 RATIO (10-20); Calcium,Total 8.4 mg/dL (8.5-10.1); Chloride 101 mmol/L (98-107); Cholesterol 174 mg/dL (200); Creatinine, Serum 1.03 mg/dL (0.70-1.30); EST Glomerular Filtration Rate 74 mL/min (>60); Est Glom Filt Rate - Afr Amer 89 mL/min (>60); Estimated Creatinine Clearance 50.76 ml/min; Globulin 3.5 g/dL (2.2-4.2); Glucose 88 mg/dL (74-106); High Density Lipoprotein 31 mg/dL; Potassium 4.1 mmol/L (3.5-5.1); Protein, Total 6.5 g/dL (6.4-8.2); Sodium Level 135 mmol/L (136-145); Triglycerides 76 mg/dL; Very Low Density Lipoprotein 15 mg/dL (5-40)
[2019-05-08 07:08] LABS: Differential Comment SCANNED
--- NOTE | 2019-05-08 08:30 | MRI_ITS ---
STUDY: MRI BRAIN WITHOUT CONTRAST REASON FOR EXAM: Male, 84 years old. aphasia, weakness,confusion,dysarthria. TECHNIQUE: Standardized multiplanar fat and water weighted pulse sequences were obtained. COMPARISON: 05/07/2019 CT of the head FINDINGS: There is mild cerebral atrophy with widening of the extra-axial spaces and ventricular dilatation. There are multiple white matter hyperintensities, distributed throughout the deep white matter tracts of the cerebral hemispheres, consistent with moderate chronic white matter ischemic changes. Normal bilateral basal ganglia. Normal thalami. There is no extra-axial fluid accumulation. Normal flow voids within the major intracranial circulation suggesting patency by spin echo criteria. Normal sella turcica, pituitary gland, infundibular stalk, optic chiasm and hypothalamus. Normal tectal plate and pineal gland. Normal midbrain, rbigette and medulla. Normal cerebellum. MRI/Brain without Contrast IMPRESSION: No acute intracranial abnormality. Moderate chronic microvascular ischemic changes. Electronically Signed: Lidya Fierro MD at 12:55 EDT Tel , Service support ,
--- NOTE | 2019-05-08 08:30 | MRI_ITS ---
STUDY: MRA OF THE HEAD WITHOUT CONTRAST REASON FOR EXAM: Male, 84 years old. aphasia, weakness,confusion,dysarthria. TECHNIQUE: 3-D [id number] (TOF) imaging was performed with MIPs. The study was performed unenhanced. COMPARISON: None. FINDINGS: Patent right cavernous carotid artery. Patent left cavernous carotid artery. Patent right A1 segments of the anterior cerebral artery. Patent left A1 segments of the anterior cerebral artery. Unremarkable anterior communicating artery (ACOM) region. Normal bilateral A2 segments of the anterior cerebral arteries. Patent right M1 and M2 segments of the middle cerebral arteries, with a unremarkable M1 bifurcation. Patent left M1 and M2 segments of the middle cerebral arteries, with a unremarkable M1 bifurcation. There is non-visualization of the right posterior communicating artery (PCOM). There is non-visualization of the left posterior communicating artery (PCOM). Patent basilar artery with a normal basilar bifurcation. Patent bilateral posterior cerebral arteries. MRI/MRA Head ONLY without Contrast IMPRESSION: No occlusion or significant stenosis. Electronically Signed: Lidya Fierro MD at 13:10 EDT Tel , Service support ,
--- NOTE | 2019-05-08 08:30 | MRI_ITS ---
STUDY: MRA NECK WITHOUT CONTRAST REASON FOR EXAM: Male, 84 years old. aphasia, weakness,confusion,dysarthria. TECHNIQUE: Source images were obtained, MIPs were performed. The study was performed unenhanced. COMPARISON: None. FINDINGS: RIGHT CAROTID ARTERIES: Antegrade flow within the right common carotid artery (CCA). Antegrade flow within the right carotid bulb. There appears to be mild atherosclerotic plaque formation of the origin of the right internal carotid artery with less than 50% cross sectional diameter stenosis. Antegrade flow within the visualized cervical portion of the right internal carotid artery. LEFT CAROTID ARTERIES: Antegrade flow within the left common carotid artery (CCA). Antegrade flow within the left common carotid bulb. There is appears to be atherosclerotic plaque formation of the origin of the left internal carotid artery with an estimated stenosis of 50-69% stenosis. Antegrade flow within the visualized cervical portion of the left internal carotid artery. VERTEBRAL ARTERIES: Antegrade flow within the bilateral vertebral artery. 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 Further evaluation with sonography is recommended. Electronically Signed: Lidya Fierro MD at 13:13 EDT Tel , Service support ,
[2019-05-08] MEDS: Enoxaparin 40 MG/0.4 ML Syringe SC (10:32)
--- NOTE | 2019-05-08 13:42 | PN_ITS ---
<Gil Sharpe - Last Filed: 05/08/19 13:42> Patient Problems: Active and Suspected Problems Generalized weakness (Acute) Unsteady gait (Acute) Subjective: The patient has ongoing dysarthria and aphasia. His MRI was negative for stroke. He slurs and mumbles his words severely, and also cannot find the words he wants to say. He reportedly could not write yesterday, and also was drooling. He has ongoing BL upper extremity weakness. He is running a fever but denies felling ill. He and his family report a major complaint at home lately is from his hiatal hernia - he refluxes, is up coughing during the night, and brings up quantities of mucus periodically. He denies chills/sweats. He denies neck painor headache. His UA is negative and he denies dysuria. He has no nausea/vomiting/or diarrhea. Daughter was concerned about his prior admission for diverticulitis, however he has no abdominal pain, diarrhea, or any other gastric issues recently. - Physical Exam General: Alert, Oriented x3, Cooperative HEENT: Atraumatic, PERRLA, EOMI, Normocephalic Neck: Supple, No JVD, Negative Carotid Bruits Lungs: Clear to auscultation, Diminished Cardiovascular: Regular rate, No murmurs Abdomen: Bowel Sounds Present, Soft, Non Tender Extremities: No edema, Capillary Refill Less than 3 Seconds Skin: No rashes, No breakdown Musculoskeletal: No Tenderness to Palpation of Joints or Extremities Neurological: Cranial nerves II-XII grossly intact, Slurred Speech, - - BL UE weakness, BL decreased label stitcher strength. Dysarthria, aphasia. Psych/Mental Status: Normal Affect, Appropriate, Alert and oriented to time, place, person, mood and affect Vital Signs Temp Pulse Resp BP Pulse Ox 99.8 F H 67 16 140/65 H 99 05/08/19 11:30 05/08/19 11:30 05/08/19 11:30 05/08/19 11:30 05/08/19 11:30 Oxygen Delivery Method Room Air Weight: 143 lb 1.28 oz Body Mass Index (BMI) 21.7 Intake and Output for Last 24 Hours 05/06/19 05/07/19 05/08/19 23:59 23:59 23:59 Intake Total 570.42 / 570.42 833.33 / 833.33 Output Total 350 / 350 125 / 125 Balance 220.42 / 220.42 708.33 / 708.33 Laboratory Tests Past 24 Hrs 05/07/19 05/07/19 05/08/19 18:00 20:50 05:45 WBC 8.2 RBC 3.96 L Hgb 12.0 L Hct 36.7 L MCV 92.7 MCH 30.3 MCHC 32.7 RDW Std Deviation 41.7 RDW Coeff of Rylie 12.2 Plt Count 195 MPV 8.7 Immature Gran % (Auto) 0.500 Neut % (Auto) 76.1 H Lymph % (Auto) 11.8 L [place] % (Auto) 10.8 H Eos % (Auto) 0.4 Baso % (Auto) 0.4 Absolute Neuts (auto) 6.3 Absolute Lymphs (auto) 0.97 Nucleated RBC % 0 Differential Comment SCANNED Sodium Potassium Chloride Carbon Dioxide Anion Gap BUN Creatinine Estim Creat Clear Calc Est GFR (MDRD) Af Amer Est GFR (MDRD) Non-Af BUN/Creatinine Ratio Glucose Calcium Total Bilirubin AST ALT Alkaline Phosphatase Troponin I < 0.015 Total Protein Albumin Globulin Albumin/Globulin Ratio Triglycerides Cholesterol LDL Cholesterol VLDL Cholesterol HDL Cholesterol Urine Color Yellow Urine Clarity Clear Urine pH 7.0 Ur Specific [place] 1.010 Urine Protein 15 H Urine Glucose (UA) Normal Urine Ketones 150 H Urine Occult Blood Negative Urine Nitrite Negative Urine Bilirubin Negative Urine Urobilinogen Normal Ur Leukocyte Esterase Negative Urine RBC 0-5 SEEN Urine WBC 0 SEEN Ur Squamous Epith Cells 0 SEEN Urine Bacteria 0 SEEN Urine Mucus 0 SEEN 05/08/19 05:45 WBC RBC Hgb Hct MCV MCH MCHC RDW Std Deviation RDW Coeff of Rylie Plt Count MPV Immature Gran % (Auto) Neut % (Auto) Lymph % (Auto) [place] % (Auto) Eos % (Auto) Baso % (Auto) Absolute Neuts (auto) Absolute Lymphs (auto) Nucleated RBC % Differential Comment Sodium 135 L Potassium 4.1 Chloride 101 Carbon Dioxide 25.0 Anion Gap 9 BUN 14 Creatinine 1.03 Estim Creat Clear Calc 50.76 Est GFR (MDRD) Af Amer 89 Est GFR (MDRD) Non-Af 74 BUN/Creatinine Ratio 13.6 Glucose 88 Calcium 8.4 L Total Bilirubin 0.90 AST 19 ALT 13 L Alkaline Phosphatase 91 Troponin I Total Protein 6.5 Albumin 3.0 L Globulin 3.5 Albumin/Globulin Ratio 0.9 Triglycerides 76 Cholesterol 174 LDL Cholesterol 128 VLDL Cholesterol 15 HDL Cholesterol 31 L Urine Color Urine Clarity Urine pH Ur Specific [place] Urine Protein Urine Glucose (UA) Urine Ketones Urine Occult Blood Urine Nitrite Urine Bilirubin Urine Urobilinogen Ur Leukocyte Esterase Urine RBC Urine WBC Ur Squamous Epith Cells Urine Bacteria Urine Mucus Medical Necessity - Tobacco Use Smoking Status: Never smoker Tobacco Use: Secondhand Assessment/Plan All Active Problems Generalized weakness (Acute) Unsteady gait (Acute) 1. Dysarthria / aphasia / weakness - Suspect acute metabolic encephalopathy, fever of unknown origin. MRI negative for stroke. Consult Neuro. Ongoing severe speech changes. Fever overnight. Ongoing reflux/hiatal hernia/cough/mucus production issues. Check CXR. No Naus/vom/diarrhea. No abdominal pain. No dysuria. Denies wounds on his body. No neck tenderness or nuchal rigidity. No leukocytosis. 2. 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 Hiatal hernia / GERD - already on PPI. Will need repeat EGD if this is worsening, could be done as outpatient. 4. Depression/Anxiety - ativan/zoloft 5. HLD - statin DVT ppx: Lovenox DC planning: PTOT. Severely weak. Normally he cares for . CM/SW aware. This patient was seen by Gil sharpe PA-C under the supervision of Dr. Goode, <Vanessa Goode - Last Filed: 05/08/19 14:13> - Physical Exam Vital Signs Temp Pulse Resp BP Pulse Ox 99.8 F H 67 16 140/65 H 99 05/08/19 11:30 05/08/19 11:30 05/08/19 11:30 05/08/19 11:30 05/08/19 11:30 Oxygen Delivery Method Room Air Weight: 143 lb 1.28 oz Body Mass Index (BMI) 21.7 Intake and Output for Last 24 Hours 05/06/19 05/07/19 05/08/19 23:59 23:59 23:59 Intake Total 570.42 / 570.42 833.33 / 833.33 Output Total 350 / 350 125 / 125 Balance 220.42 / 220.42 708.33 / 708.33 Laboratory Tests Past 24 Hrs 05/07/19 05/07/19 05/08/19 18:00 20:50 05:45 WBC 8.2 RBC 3.96 L Hgb 12.0 L Hct 36.7 L MCV 92.7 MCH 30.3 MCHC 32.7 RDW Std Deviation 41.7 RDW Coeff of Rylie 12.2 Plt Count 195 MPV 8.7 Immature Gran % (Auto) 0.500 Neut % (Auto) 76.1 H Lymph % (Auto) 11.8 L [place] % (Auto) 10.8 H Eos % (Auto) 0.4 Baso % (Auto) 0.4 Absolute Neuts (auto) 6.3 Absolute Lymphs (auto) 0.97 Nucleated RBC % 0 Differential Comment SCANNED Sodium Potassium Chloride Carbon Dioxide Anion Gap BUN Creatinine Estim Creat Clear Calc Est GFR (MDRD) Af Amer Est GFR (MDRD) Non-Af BUN/Creatinine Ratio Glucose Calcium Total Bilirubin AST ALT Alkaline Phosphatase Troponin I < 0.015 Total Protein Albumin Globulin Albumin/Globulin Ratio Triglycerides Cholesterol LDL Cholesterol VLDL Cholesterol HDL Cholesterol Urine Color Yellow Urine Clarity Clear Urine pH 7.0 Ur Specific [place] 1.010 Urine Protein 15 H Urine Glucose (UA) Normal Urine Ketones 150 H Urine Occult Blood Negative Urine Nitrite Negative Urine Bilirubin Negative Urine Urobilinogen Normal Ur Leukocyte Esterase Negative Urine RBC 0-5 SEEN Urine WBC 0 SEEN Ur Squamous Epith Cells 0 SEEN Urine Bacteria 0 SEEN Urine Mucus 0 SEEN 05/08/19 05:45 WBC RBC Hgb Hct MCV MCH MCHC RDW Std Deviation RDW Coeff of Rylie Plt Count MPV Immature Gran % (Auto) Neut % (Auto) Lymph % (Auto) [place] % (Auto) Eos % (Auto) Baso % (Auto) Absolute Neuts (auto) Absolute Lymphs (auto) Nucleated RBC % Differential Comment Sodium 135 L Potassium 4.1 Chloride 101 Carbon Dioxide 25.0 Anion Gap 9 BUN 14 Creatinine 1.03 Estim Creat Clear Calc 50.76 Est GFR (MDRD) Af Amer 89 Est GFR (MDRD) Non-Af 74 BUN/Creatinine Ratio 13.6 Glucose 88 Calcium 8.4 L Total Bilirubin 0.90 AST 19 ALT 13 L Alkaline Phosphatase 91 Troponin I Total Protein 6.5 Albumin 3.0 L Globulin 3.5 Albumin/Globulin Ratio 0.9 Triglycerides 76 Cholesterol 174 LDL Cholesterol 128 VLDL Cholesterol 15 HDL Cholesterol 31 L Urine Color Urine Clarity Urine pH Ur Specific [place] Urine Protein Urine Glucose (UA) Urine Ketones Urine Occult Blood Urine Nitrite Urine Bilirubin Urine Urobilinogen Ur Leukocyte Esterase Urine RBC Urine WBC Ur Squamous Epith Cells Urine Bacteria Urine Mucus Assessment/Plan Hospitalist note: I am seeing this patient in conjunction with Gil Sharpe. I independently seen and examined the patient. Progress note above, laboratory data and imaging studies reviewed and I concur with the above work-up plan. Patient admitted for slurred speech/dysarthria and drooling. He does have bilateral equal upper extremity weakness. He has been having low-grade fever. The patient is alert, knows his full name but he will answer other questions because of dysarthria. His daughter mentioned that he had admissions for diverticulitis in the past but patient denies any abdominal pain or diarrhea. He denied nausea vomiting. He denies urinary symptoms. Apart from low-grade fever, other vital signs are stable. - Physical Exam General: Alert, Oriented x3, Cooperative, dysarthric. HEENT: Atraumatic, PERRLA, EOMI. Neck: Supple, No JVD, Negative Carotid Bruits, Trachea Midline, Thyroid Normal. Lungs: Diminished breath sounds bilateral, otherwise clear, No rhonchi, No wheeze, No rales. Cardiovascular: Regular rate, Regular Rhythm, Normal S1, Normal S2, PMI Normal. Abdomen: Bowel Sounds Present, Soft, Non Tender, Non-Distended, No Hepato- splenomegaly. Extremities: No clubbing, No cyanosis, No edema Skin: No rashes, No breakdown Neurological: Cranial nerves are intact, global weakness, no focal deficit, neuro grossly intact Assessment and plan: #1 dysarthria/weakness, nonfocal: CT scan brain without acute findings. MRI brain showed no acute infarct or hemorrhage. MRA was unremarkable. Apart from low-grade fever, other vital signs are stable. Routine blood work was unremarkable. No leukocytosis, LFT and lipase were normal. Urinalysis reviewed, no evidence of UTI. Patient still having dysarthria but no focal deficit. Plan: Neurology consult. #2 fever: Without obvious source of infection. Denied shortness of breath, cough or sputum production. Denies urinary symptoms. Reviewed, no acute UTI. No neck stiffness, neck pain. Plan for chest x-ray, blood culture. #3 other chronic medical problems: Stable, continue current medications as above. This note was generated with [employer] software. It may contain incorrect words, spelling, and punctuation that were not noted in checking the note before signing. Code Visit OBSV E&M: 54754 Subsequent observation care L2
--- NOTE | 2019-05-08 13:50 | RAD_ITS ---
STUDY: X-RAY CHEST REASON FOR EXAM: Male, 84 years old. Shortness of breath. TECHNIQUE: PA and lateral views of the chest. COMPARISON: January 13, 2016. FINDINGS: Cardiac silhouette unremarkable. Pulmonary vascularity unremarkable. Aorta unremarkable. No focal patchy airspace opacities. No pleural effusions. COPD. Upper abdomen unremarkable. Osseous structures are demineralized. No pneumothorax. Left shoulder rotator cuff repair. Degenerative changes of the shoulders and spine. RAD/Chest PA and Lateral IMPRESSION: No acute cardiopulmonary findings Electronically Signed: Vitor Mckeon DO at 15:11 EDT Tel , Service support ,
--- NOTE | 2019-05-08 15:08 | CHAPLAIN ---
Type of Pastoral Visit _x__ Initial Visit ___ Follow-up Visit ___ On-call Visit ___ General Patient Visit ___ Spiritual Assessment ___ Family Conference ___ Bereavement ___ Rapid Response ___ Code Blue ___ Other (describe below) Pastoral Care Referral From ___ Patient _x__ Family ___ Nurse ___ Physician ___ Knitter Machine ___ Cloth Cutting Machine Operator ___ Other (describe below) Sacrament/Intervention ___ Active listening ___ Anointing ___ Uatsdin ___ Bereavement ___ Communion ___ Sherri exploration ___ ___ Life review _x__ Prayer ___ Reconciliation ___ Sacrament of Sick _x__ Supportive presence ___ Wedding ___ Other (describe below) Pastoral Comments made three attempts to visit but patient is occupied each time; on third attempt talked with spouse and a great nephew; pt states that this is not going so well and I have Parkinson's; spouse requests that reports analyst pray for them; will attempt to follow up again tomorrow if possible; offer of ongoing support as needed
[2019-05-08] MEDS: Acetaminophen 650 MG Suppository RECTAL (15:42)
[2019-05-09] VITALS (9 sets, daily range): BP systolic 129–152; BP diastolic 72–77; PULSE 61–74; RESP 16–20; TEMP 36.5–37.4; O2SAT 95–100
[2019-05-09] MEDS: 0.9% Normal Saline 1,000 ML 100 ML IV ×3 (00:20→20:11)
[2019-05-09 06:20] LABS: Absolute Lymphocyte Count 0.65 X10^3/uL (0.83-4.51); Basophil# 0.02 X10^3/uL; Basophil% 0.2 % (0-1); Hemoglobin 12.3 g/dL (13.0-16.5); Lymphocyte # 0.65 X10^3/ul (4.0); Lymphocyte % 7.6 % (19-41); Mean Corp Hgb Conc 34.2 g/dL (32-36); Mean Corpuscular Hgb 31.1 pg (27.0-32.0); Mean Corpuscular Volume 91.1 fL (80-94); Mean Platelet Vol. 8.6 fl (6.2-12.0); Monocyte% 9.4 % (0-10); NRBC Flagged by Analyzer 0 % (0-5); Neutrophil # 7.01 X10^3/uL (2.7-7.7); Neutrophil % 82.4 % (47-70); Platelet Count 192 K/mm3 (150-450); RBC Distribution Width CV 11.9 % (11.6-14.6); RBC Distribution Width SD 39.7 fl (35.1-43.9); Red Blood Count 3.95 M/mm3 (4.6-6.2); White Blood Count 8.5 K/mm3 (4.4-11.0)
[2019-05-09] MEDS: Enoxaparin 40 MG/0.4 ML Syringe SC (08:02)
--- NOTE | 2019-05-09 10:26 | CT_ITS ---
STUDY: CT ABDOMEN AND PELVIS WITH CONTRAST REASON FOR EXAM: Male, 84 years old. Fever. History of diverticulitis. RADIATION DOSAGE (If Supplied By Facility): CTDIvol = ( 13.10 ) mGy, DLP = ( 511.55 ) mGycm TECHNIQUE: Transaxial images were obtained from the dome of the diaphragm to the symphysis pubis without oral contrast. 100ml IV Isovue 300 was administered. Sagittal and coronal images were reconstructed. Individualized dose optimization techniques were used for this CT. COMPARISON: Comparison is made with prior study dated April 13, 2018. FINDINGS: Stable mild degree of increased markings at the lung bases suggestive of mild degree of scarring. Coronary artery calcification. There is decreased attenuation of the liver consistent with steatosis. Normal gallbladder and extrahepatic biliary system. Normal spleen. Normal pancreas. Normal bilateral adrenal glands. Normal right kidney. Normal left kidney. Nonspecific mild degree of bilateral perinephric stranding. Fluid-filled distal portion of the esophagus. Normal small intestine. There are multiple colonic diverticula consistent with diverticulosis. The patient is status post appendectomy. There is scattered atherosclerotic calcification of the abdominal aorta, without a demonstrated aneurysm. Normal inferior vena cava. Normal retroperitoneum. Normal urinary bladder. Normal abdominal wall. There are diffuse degenerative changes of the visualized lumbar spine. CT/Abdomen/Pelvis WITH Contrast IMPRESSION: Sigmoid diverticulosis. No evidence of acute inflammatory changes. Mild degree of bilateral perinephric stranding. Electronically Signed: Jd Sanchez, at 14:21 EDT , Service support ,
--- NOTE | 2019-05-09 10:33 | PCM.CONS.GEN ---
Reason for Consult Date of Consultation: 05/09/19 Reason for Consultation: weakness History of Present Illness: The patient is a 84 year old male with weakness and fevers. presented as below, reports doing well until tu, 4 days ago. says was suddenly nonspecifically weak. by report mri negative. stomach discomfort is his only complaint. per admit note:The patient is a 84 year old M who presents to the emergency room due to weakness, dysarthria and expressive aphasia. Patient able to follow commands during his exam but unable to communicate HPI. He does nod his head yes and no during questioning. Daughter at bedside reports patient noticed drooling during the day today which he was unable to control. She also states he had difficulty communicating and was generally weak. He is normally independent and well functioning at home. Daughter denies history of confusion or significant weakness at home. Daughter and at bedside deny noticeable unilateral weakness, facial droop. 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 Past Medical History Past Medical History (Chronic Problems): Chronic Problems Hyperlipidemia (Chronic) HTN (hypertension) (Chronic) GERD (gastroesophageal reflux disease) (Chronic) Depression with anxiety (Chronic) Allergies levofloxacin [From Levaquin] Allergy (Intermediate, Verified 05/07/19 11:20) Vomiting Penicillins Allergy (Intermediate, Verified 05/07/19 11:20) Hives lactose Allergy (Verified 05/07/19 11:20) Unknown Gadolinium-MRI Contrast Medium [MRI] Adverse Reaction (Verified 05/07/19 12:08) Other CONFUSION, MEMORY OSS, IN A FOG, HEADACHE, OFF BALANCE Home Medications: Ambulatory Orders Medication Instructions Recorded Multivitamins,Therapeutic 1 tablet PO DAILY 01/13/16 [Multivitamin] Psyllium [Metamucil] 1 packet PO DAILY 01/13/16 Pyridoxine HCl [Vitamin B-6] 100 mg PO DAILY 01/13/16 Flaxseed Oil/[place] 3,6,9 [Sv 1 each PO DAILY 04/12/16 Flaxseed Oil 1,300 mg Sftgl] Omeprazole [Prilosec] 20 mg PO DAILY 04/12/16 Cholecalciferol (Vitamin D3) 5,000 unit PO DAILY 04/13/18 [Vitamin D3] Cyanocobalamin (Vitamin B-12) 2,000 mcg PO DAILY 04/13/18 [Vitamin B-12] Simvastatin [Zocor] 20 mg PO DAILY 04/13/18 Sertraline HCl 50 mg PO DAILY 12/10/18 Lorazepam [Ativan] 0.5 mg PO BID PRN PRN 05/07/19 Surgical History: - - Appendectomy, shoulder/rotator cuff surgery. Lives: Spouse/ Significant Other Smoking Status: Never smoker Tobacco Use: Secondhand Alcohol: None Drugs: None - *Family History Maternal History Items: - - Denies known paternal medical history including cardiac history. Paternal History Items: - - Denies known paternal medical history including cardiac history. Review of Systems Constitutional: Reports: Weakness Patient Problems: Active and Suspected Problems Generalized weakness (Acute) Unsteady gait (Acute) - Physical Exam General: Alert Neurological: Cranial nerves II-XII grossly intact, Deep Tendon Reflexes 2+/4 and Symmetrical, Neuro grossly intact, Motor Exam 5/5 strength throughout Vital Signs Temp Pulse Resp BP Pulse Ox 36.7 C 67 20 H 149/72 H 100 05/09/19 09:20 05/09/19 09:20 05/09/19 09:20 05/09/19 09:20 05/09/19 09:20 Oxygen Delivery Method Room Air Weight: 64.9 kg Body Mass Index (BMI) 21.7 Intake and Output for Last 24 Hours 05/07/19 05/08/19 05/09/19 23:59 23:59 23:59 Intake Total 570.42 / 570.42 1326.66 / 1326.66 1776.67 / 1776.67 Output Total 350 / 350 625 / 625 200 / 200 Balance 220.42 / 220.42 701.66 / 701.66 1576.67 / 1576.67 Laboratory Tests Past 24 Hrs 05/08/19 05/09/19 14:20 06:05 WBC 8.5 RBC 3.95 L Hgb 12.3 L Hct 36.0 L MCV 91.1 MCH 31.1 MCHC 34.2 RDW Std Deviation 39.7 RDW Coeff of Rylie 11.9 Plt Count 192 MPV 8.6 Immature Gran % (Auto) 0.400 Neut % (Auto) 82.4 H Lymph % (Auto) 7.6 L [place] % (Auto) 9.4 Eos % (Auto) 0.0 Baso % (Auto) 0.2 Absolute Neuts (auto) 7.0 Absolute Lymphs (auto) 0.65 L Nucleated RBC % 0 Ammonia 11.0 Current Home Med List Medication Instructions Recorded Confirmed Type Multivitamins,Therapeutic 1 tablet PO DAILY 01/13/16 05/07/19 History [Multivitamin] Psyllium [Metamucil] 1 packet PO DAILY 01/13/16 05/07/19 History Pyridoxine HCl [Vitamin B-6] 100 mg PO DAILY 01/13/16 05/07/19 History Flaxseed Oil/[place] 3,6,9 [Sv 1 each PO DAILY 04/12/16 05/07/19 History Flaxseed Oil 1,300 mg Sftgl] Omeprazole [Prilosec] 20 mg PO DAILY 04/12/16 05/07/19 History Cholecalciferol (Vitamin D3) 5,000 unit PO DAILY 04/13/18 05/07/19 History [Vitamin D3] Cyanocobalamin (Vitamin B-12) 2,000 mcg PO DAILY 04/13/18 05/07/19 History [Vitamin B-12] Simvastatin [Zocor] 20 mg PO DAILY 04/13/18 05/07/19 History Sertraline HCl 50 mg PO DAILY 12/10/18 05/07/19 History Lorazepam [Ativan] 0.5 mg PO BID PRN PRN 05/07/19 05/07/19 History Current Medications Generic Name Dose Route Start Last Admin Trade Name Freq PRN Reason Stop Dose Admin Acetaminophen 650 mg 05/07/19 17:41 Tylenol PO Q4H PRN PRN Headache/Temp>99.6F Acetaminophen 650 mg 05/07/19 20:03 05/08/19 15:42 Tylenol RECTAL 650 mg Q6H PRN PRN Administration for temp greater than 100.5 Aspirin 81 mg 05/08/19 08:00 05/09/19 08:05 Aspirin, Baby PO Not Given DAILY@0800 [facility] Atorvastatin Calcium 80 mg 05/07/19 22:00 05/08/19 21:48 Lipitor PO Not Given QHS [facility] Cyanocobalamin 2,000 mcg 05/08/19 10:00 05/09/19 08:06 Vitamin B12 PO Not Given DAILY [facility] Enoxaparin Sodium 40 mg 05/08/19 10:00 05/09/19 08:02 Lovenox SC 40 mg DAILY@1000 [facility] Administration Sodium Chloride 1,000 mls @ 100 mls/hr 05/07/19 17:55 05/09/19 09:14 IV 100 mls/hr .Q10H [facility] Administration Sodium Chloride 250 mls @ 15 mls/hr 05/09/19 08:25 IV .[id number] PRN SALINE FLUSH Pantoprazole Sodium 40 mg 05/08/19 10:00 05/09/19 08:05 Protonix PO Not Given DAILY [facility] Pyridoxine HCl 100 mg 05/08/19 10:00 05/09/19 08:05 Vitamin B-6 PO Not Given DAILY [facility] Sertraline HCl 50 mg 05/08/19 10:00 05/09/19 08:06 Zoloft PO Not Given DAILY [facility] Sodium Chloride 10 - 40 ml 05/07/19 17:05 IV UD PRN SALINE FLUSH Sodium Chloride 10 - 40 ml 05/09/19 08:25 IV UD PRN SALINE FLUSH mri reviewed, no acute Assessment/Plan All Active Problems Generalized weakness (Acute) Unsteady gait (Acute) metabolic encephalopathy, fevers to 38.0 yesterday, family reports improved today, no evidence of neurologic injury otherwise, rec ongoing medical managemant, no specific neuro recs, please call if needed
--- NOTE | 2019-05-09 11:33 | PN_ITS ---
<Gil Sharpe - Last Filed: 05/09/19 11:33> Patient Problems: Active and Suspected Problems Generalized weakness (Acute) Unsteady gait (Acute) Subjective: Family felt this AM his speech was improved. He was able to get a full sentence out with me initially. After this, his speech became muffled, incomprehensible, and he would start to answer questions before looking away and failing to respond. He currently has no SOB, cough, fever, chills, headache, neck pain, nausea/vomiting/diarrhea. I discussed with his and daughter. He has been diagnosed with dementia by his PCP recently and was advised to take OTC supplements, no other prescriptions. Over the past two months he has had worsening forgetfullness, forgetting words, and being unable to complete sentences followed by frustrated behavior. His sister of alzheimers. No fever since 2129 yesterday which was 100.2. He remains NPO. - Physical Exam General: Alert, Oriented x3, Cooperative HEENT: Atraumatic, PERRLA, EOMI, Normocephalic Neck: Supple, No JVD, Negative Carotid Bruits Lungs: Clear to auscultation, Normal air movement Cardiovascular: Regular rate, No murmurs Abdomen: Bowel Sounds Present, Soft, Non Tender Extremities: No edema, Capillary Refill Less than 3 Seconds Skin: No rashes, No breakdown Musculoskeletal: No Tenderness to Palpation of Joints or Extremities Neurological: Cranial nerves II-XII grossly intact, - - dysarthric and aphasic. BL Upper extremity weakness. Psych/Mental Status: Normal Affect, Appropriate Vital Signs Temp Pulse Resp BP Pulse Ox 98.0 F 67 20 H 149/72 H 100 05/09/19 09:20 05/09/19 09:20 05/09/19 09:20 05/09/19 09:20 05/09/19 09:20 Oxygen Delivery Method Room Air Weight: 143 lb 1.28 oz Body Mass Index (BMI) 21.7 Intake and Output for Last 24 Hours 05/07/19 05/08/19 05/09/19 23:59 23:59 23:59 Intake Total 570.42 / 570.42 1326.66 / 1326.66 1928.34 / 1928.34 Output Total 350 / 350 625 / 625 200 / 200 Balance 220.42 / 220.42 701.66 / 701.66 1728.34 / 1728.34 Microbiology Past 72 Hours 05/08/19 20:10 Respiratory Panel (PCR) - Final Mucosa - Nasopharyngeal Laboratory Tests Past 24 Hrs 05/08/19 05/09/19 14:20 06:05 WBC 8.5 RBC 3.95 L Hgb 12.3 L Hct 36.0 L MCV 91.1 MCH 31.1 MCHC 34.2 RDW Std Deviation 39.7 RDW Coeff of Rylie 11.9 Plt Count 192 MPV 8.6 Immature Gran % (Auto) 0.400 Neut % (Auto) 82.4 H Lymph % (Auto) 7.6 L [place] % (Auto) 9.4 Eos % (Auto) 0.0 Baso % (Auto) 0.2 Absolute Neuts (auto) 7.0 Absolute Lymphs (auto) 0.65 L Nucleated RBC % 0 Ammonia 11.0 Medical Necessity - Tobacco Use Smoking Status: Never smoker Tobacco Use: Secondhand Assessment/Plan All Active Problems Generalized weakness (Acute) Unsteady gait (Acute) 1. Dysarthria / aphasia / weakness - Suspect acute metabolic encephalopathy, fever of unknown origin. MRI negative for stroke. MRA head and neck, Echo negative. -neuro feels this is related to fever and not neurologic issue. -last fever last night 2130 100.2F. -resp panel neg -Blood cultures pending. -CT abd today -No GARRETT/neck pain/Nuchal rigidity -No N/V/D -No dysuria negative UA. -CXR negative, does have dysphagia and is NPO. 2. 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 Hx dementia - only takes OTC supplements for this. Family states PCP diagnosed this. He has had worsening forgetfulness over the past 2 months. His sister of alzheimers. 4. Dysphagia - continue ST. Still NPO. 5. Hiatal hernia / GERD - continue PPI. 6. Depression/Anxiety - ativan/zoloft 7. HLD - statin DVT ppx: Lovenox DC planning: PTOTST. Severely weak. NPO. Normally he cares for . CM/SW aware. This patient was seen by Gil sharpe PA-C under the supervision of Dr. Goode, <Vanessa Goode E - Last Filed: 05/09/19 12:50> - Physical Exam Vital Signs Temp Pulse Resp BP Pulse Ox 98.0 F 67 20 H 149/72 H 100 05/09/19 09:20 05/09/19 09:20 05/09/19 09:20 05/09/19 09:20 05/09/19 09:20 Oxygen Delivery Method Room Air Weight: 143 lb 1.28 oz Body Mass Index (BMI) 21.7 Intake and Output for Last 24 Hours 05/07/19 05/08/19 05/09/19 23:59 23:59 23:59 Intake Total 570.42 / 570.42 1326.66 / 1326.66 1928.34 / 1928.34 Output Total 350 / 350 625 / 625 200 / 200 Balance 220.42 / 220.42 701.66 / 701.66 1728.34 / 1728.34 Microbiology Past 72 Hours 05/08/19 20:10 Respiratory Panel (PCR) - Final Mucosa - Nasopharyngeal Laboratory Tests Past 24 Hrs 05/08/19 05/09/19 14:20 06:05 WBC 8.5 RBC 3.95 L Hgb 12.3 L Hct 36.0 L MCV 91.1 MCH 31.1 MCHC 34.2 RDW Std Deviation 39.7 RDW Coeff of Rylie 11.9 Plt Count 192 MPV 8.6 Immature Gran % (Auto) 0.400 Neut % (Auto) 82.4 H Lymph % (Auto) 7.6 L [place] % (Auto) 9.4 Eos % (Auto) 0.0 Baso % (Auto) 0.2 Absolute Neuts (auto) 7.0 Absolute Lymphs (auto) 0.65 L Nucleated RBC % 0 Ammonia 11.0 Assessment/Plan Hospitalist note: I am seeing this patient in conjunction with Gil Sharpe. I independently seen and examined the patient. Progress note above, laboratory data and imaging studies reviewed and I concur with the above work-up plan. Family reported that his speech slightly improved this morning but later, his speech has been in comprehensible, difficult to understand. Patient denies any specific symptoms. He denies chest pain or shortness of breath. He denies cough or sputum production. He denied abdominal pain, nausea vomiting. He is still having spikes of fever, other vital signs were stable. - Physical Exam General: Alert, Oriented x3, Cooperative, dysarthric. HEENT: Atraumatic, PERRLA, EOMI. Neck: Supple, No JVD, Negative Carotid Bruits, Trachea Midline, Thyroid Normal. No neck stiffness. Lungs: Diminished breath sounds bilateral, otherwise clear, No rhonchi, No wheeze, No rales. Cardiovascular: Regular rate, Regular Rhythm, Normal S1, Normal S2, PMI Normal. Abdomen: Bowel Sounds Present, Soft, Non Tender, Non-Distended, No Hepato- splenomegaly. Extremities: No clubbing, No cyanosis, No edema Skin: No rashes, No breakdown Neurological: Cranial nerves are intact, global weakness, no focal deficit, neuro grossly intact Assessment and plan: #1 dysarthria/weakness, nonfocal: Acute stroke ruled out. Could be due to metabolic encephalopathy. CT scan brain without acute findings. MRI brain showed no acute infarct or hemorrhage. MRA was unremarkable. 2D echocardiogram revealed ejection fraction 75%, bubble contrast study negative for [id number] shunt. Apart from fever, other vital signs are stable. No focal deficit on physical exam except dysarthria. #2 fever: With unknown source of infection, without obvious source of infection. Patient denied any symptoms suggestive of infection. Respiratory panel for viruses were negative. No neck stiffness. Chest x-ray and UA was unremarkable. Blood culture is pending. No indication to start IV antibiotics. Plan: Since patient has a history of recurrent significant diverticulosis in the past, will do CT scan abdomen and pelvis with IV and oral contrast. If patient continued to have fever, we may need to consult infectious disease. #3 other chronic medical problems: Stable, continue current medications as above. This note was generated with [employer] dictation software. It may contain incorrect words, spelling, and punctuation that were not noted in checking the note before signing. Code Visit OBSV E&M: 08829 Subsequent observation care L2
--- NOTE | 2019-05-09 11:55 | CASEMGMT ---
Addendum entered by Jyo Dan 05/09/19 14:49: [facility] pt. Pt will meet criteria to DC 05/11. Notified pt and family - both agreeable. Original Note: Social Work Met with patient, and daughter to discuss discharge plans. Pt is having difficulty with ADLs and speech. Inquired about SNF referral. All parties agreed pt could benefit from rehab, then return home with and daughter would live in to assist initially. Provided list of [facility] SNFs, preferred [facility], but was okay referring to other facilities. Explained Medicare guidelines and coverage. Family understood. Referrals made. Will await outcomes. Will continue to follow. Joy Dan, SUMAYA STAHLW
--- NOTE | 2019-05-09 13:52 | CASEMGMT ---
LW/POA forms not in echart or paper chart. SW spoke w/pt's in room, let her know that we do not have POA/LW forms here on file, asked if she is able to bring them in. states understanding. JENISE Amaral
--- NOTE | 2019-05-09 15:15 | CASEMGMT ---
Green sheet on chart for pt to go to [facility] at discharge. SStantoinette FERNANDEZ CM
[2019-05-09] MEDS: Atorvastatin Calcium 80 MG Tablet PO (21:10)
[2019-05-10] VITALS (10 sets, daily range): BP systolic 130–148; BP diastolic 70–77; PULSE 50–83; RESP 12–18; TEMP 36.5–37.3; O2SAT 95–97
[2019-05-10] MEDS: 0.9% Normal Saline 1,000 ML 100 ML IV ×2 (06:03→16:38)
[2019-05-10] MEDS: Acetaminophen 325 MG Tablet 650 MG PO (08:00)
[2019-05-10] MEDS: Aspirin 81 MG TAB.CHEW PO (08:03)
[2019-05-10] MEDS: Pantoprazole Sodium 40 MG Tablet PO (10:31)
[2019-05-10] MEDS: Sertraline 50 MG Tablet PO (10:31)
[2019-05-10] MEDS: Enoxaparin 40 MG/0.4 ML Syringe SC (10:31)
[2019-05-10] MEDS: Pyridoxine HCl 50 MG Tablet 100 MG PO (10:32)
[2019-05-10] MEDS: Cyanocobalamin 500 MCG Tablet 2000 MCG PO (10:32)
--- NOTE | 2019-05-10 11:14 | PN_ITS ---
<Gil Sharpe - Last Filed: 05/10/19 12:29> Patient Problems: Active and Suspected Problems Generalized weakness (Acute) Unsteady gait (Acute) Subjective: Pt improved this AM. He is able to finish full sentences and his speech is much clearer. He stil speaks somewhat slow and has trouble with word finding. He denies flank pain, abdominal pain, dysuria, fevers/chills, SOB, or headache. - Physical Exam General: Alert, Oriented x3, Cooperative HEENT: Atraumatic, PERRLA, EOMI, Normocephalic Neck: Supple, No JVD, Negative Carotid Bruits Lungs: Clear to auscultation, Normal air movement Cardiovascular: Regular rate, No murmurs Abdomen: Bowel Sounds Present, Soft, Non Tender Extremities: No edema, Capillary Refill Less than 3 Seconds Skin: No rashes, No breakdown Musculoskeletal: No Tenderness to Palpation of Joints or Extremities Neurological: Cranial nerves II-XII grossly intact Psych/Mental Status: Normal Affect, Appropriate Vital Signs Temp Pulse Resp BP Pulse Ox 98.2 F 60 18 138/70 H 95 05/10/19 03:12 05/10/19 07:24 05/10/19 03:12 05/10/19 03:12 05/10/19 03:12 Oxygen Delivery Method Room Air Weight: 143 lb 1.28 oz Body Mass Index (BMI) 21.7 Intake and Output for Last 24 Hours 05/08/19 05/09/19 05/10/19 23:59 23:59 23:59 Intake Total 1326.66 / 1326.66 3130.01 / 3130.01 1106.67 / 1106.67 Output Total 625 / 625 450 / 450 300 / 300 Balance 701.66 / 701.66 2680.01 / 2680.01 806.67 / 806.67 Microbiology Past 72 Hours 05/08/19 20:10 Respiratory Panel (PCR) - Final Mucosa - Nasopharyngeal Medical Necessity - Tobacco Use Smoking Status: Never smoker Tobacco Use: Secondhand Assessment/Plan All Active Problems Generalized weakness (Acute) Unsteady gait (Acute) 1. Dysarthria / aphasia / weakness - Suspect acute metabolic encephalopathy, fever of unknown origin. MRI negative for stroke. MRA head and neck, Echo negative. -mild perinephric stranding on CT abdomen. -started on Rocephin empirically -now afebrile -speech improved. 2. 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 Hx dementia - only takes OTC supplements for this. Family states PCP diagnosed this. He has had worsening forgetfulness over the past 2 months. His sister of alzheimers. O/P follow up. 4. Dysphagia - continue ST. Modified diet tolerated so far. 5. Hiatal hernia / GERD - continue PPI. 6. Depression/Anxiety - ativan/zoloft 7. HLD - statin DVT ppx: Lovenox DC planning: PTOTST. Needs SNF. broke her hip last night and he was her primary caregiver, SW/CM made aware. This patient was seen by Gil sharpe PA-C under the supervision of Dr. Goode <Vanessa Goode E - Last Filed: 05/10/19 12:43> - Physical Exam Vital Signs Temp Pulse Resp BP Pulse Ox 98.1 F 55 L 16 131/72 H 95 05/10/19 09:12 05/10/19 09:12 05/10/19 09:12 05/10/19 09:12 05/10/19 09:12 Oxygen Delivery Method Room Air Weight: 143 lb 1.28 oz Body Mass Index (BMI) 21.7 Intake and Output for Last 24 Hours 05/08/19 05/09/19 05/10/19 23:59 23:59 23:59 Intake Total 1326.66 / 1326.66 3130.01 / 3130.01 1106.67 / 1106.67 Output Total 625 / 625 450 / 450 300 / 300 Balance 701.66 / 701.66 2680.01 / 2680.01 806.67 / 806.67 Microbiology Past 72 Hours 05/08/19 20:10 Respiratory Panel (PCR) - Final Mucosa - Nasopharyngeal Assessment/Plan Hospitalist note: I am seeing this patient in conjunction with Gil Sharpe. I independently seen and examined the patient. Progress note above, laboratory data and imaging studies reviewed and I concur with the above work-up plan. CT scan abdomen and pelvis with contrast revealed sigmoid diverticulosis without evidence of diverticulitis, revealed mild degree of bilateral perinephric stranding. Today, patient speech is improving, more clear and easier to understand. Patient denied any symptoms. Denied abdominal pain, nausea or vomiting. His vital signs have been stable and he was afebrile overnight. - Physical Exam General: Alert, Oriented x3, Cooperative, dysarthric. HEENT: Atraumatic, PERRLA, EOMI. Neck: Supple, No JVD, Negative Carotid Bruits, Trachea Midline, Thyroid Normal. No neck stiffness. Lungs: Diminished breath sounds bilateral, otherwise clear, No rhonchi, No wheeze, No rales. Cardiovascular: Regular rate, Regular Rhythm, Normal S1, Normal S2, PMI Normal. Abdomen: Bowel Sounds Present, Soft, Non Tender, Non-Distended, No Hepato- splenomegaly. Extremities: No clubbing, No cyanosis, No edema Skin: No rashes, No breakdown Neurological: Cranial nerves are intact, global weakness, no focal deficit, neuro grossly intact Assessment and plan: #1 dysarthria/weakness, nonfocal: Acute stroke ruled out. This is attributed to metabolic encephalopathy. CT scan brain without acute findings. MRI brain showed no acute infarct or hemorrhage. MRA was unremarkable. 2D echocardiogram revealed ejection fraction 75%, bubble contrast study negative for [id number] shunt. Apart from fever, other vital signs are stable. No focal deficit on physical exam except dysarthria which is improving. #2 fever/probable bilateral acute pyelonephritis: CT scan abdomen and pelvis reviewed as above. Urinalysis on admission was clean without evidence of UTI without evidence of pyuria. Patient denies any flank pain or urinary symptoms.. Again, he has no leukocytosis on repeat CBC. Patient was started on IV Roceph in empirically. He has been afebrile overnight. Blood cultures pending. Plan to continue IV Rocephin. #3 other chronic medical problems: Stable, continue current medications as above. This note was generated with [employer] software. It may contain incorrect words, spelling, and punctuation that were not noted in checking the note before signing. Code Visit OBSV E&M: 83801 Subsequent observation care L2
[2019-05-10] MEDS: Atorvastatin Calcium 80 MG Tablet PO (21:19)
[2019-05-11 02:58] VITALS: BP 130/73; PULSE 60; RESP 14; TEMP 37.1; O2SAT 96
[2019-05-11 03:08] VITALS: PULSE 62
[2019-05-11] MEDS: 0.9% Normal Saline 1,000 ML 100 ML IV (03:12)
[2019-05-11 07:14] VITALS: PULSE 60
[2019-05-11 08:45] VITALS: BP 142/71; PULSE 55; RESP 16; TEMP 36.6; O2SAT 98
[2019-05-11] MEDS: Enoxaparin 40 MG/0.4 ML Syringe SC (08:57)
[2019-05-11] MEDS: Aspirin 81 MG TAB.CHEW PO (08:57)
[2019-05-11] MEDS: Sertraline 50 MG Tablet PO (08:58)
[2019-05-11] MEDS: Cyanocobalamin 500 MCG Tablet 2000 MCG PO (08:58)
[2019-05-11] MEDS: Pantoprazole Sodium 40 MG Tablet PO (08:58)
[2019-05-11] MEDS: Pyridoxine HCl 50 MG Tablet 100 MG PO (08:58)
--- NOTE | 2019-05-11 10:40 | PCM.EXTCARCO ---
- Diet 05/09/19 15:25 Diet: Cardiac/Low Cholesterol Food consistency:: Puree Liquid Consistency:: Esparto Thick Is pt able to select menu?: Yes - Routine Orders/Code Status Suppository Type: Dulcolax 10mg Suppository Frequency: Daily PRN Routine Lab Work: CBC - 5 days, BMP - 5 days Code Status: Full Code - Therapies Physical Therapy: Eval and Treat Occupational Therapy: Eval and Treat Speech Therapy: Eval and Treat - Problem/Diagnosis (1) Acute metabolic encephalopathy Status: Acute Current Visit: Yes (2) Pyelonephritis Status: Acute Current Visit: Yes (3) Dementia Status: Chronic Current Visit: Yes (4) Dysphagia Status: Chronic Current Visit: Yes (5) Generalized weakness Status: Chronic Current Visit: Yes (6) Depression with anxiety Status: Chronic Current Visit: Yes (7) GERD (gastroesophageal reflux disease) Status: Chronic Current Visit: Yes (8) HTN (hypertension) Status: Chronic Current Visit: Yes (9) Hyperlipidemia Status: Chronic Current Visit: Yes - Allergies/Procedures Done in Hospital Allergies/Adverse Reactions: Allergies levofloxacin [From Levaquin] Allergy (Intermediate, Verified 05/07/19 11:20) Vomiting Penicillins Allergy (Intermediate, Verified 05/07/19 11:20) Hives lactose Allergy (Verified 05/07/19 11:20) Unknown Gadolinium-MRI Contrast Medium [MRI] Adverse Reaction (Verified 05/07/19 12:08) Other CONFUSION, MEMORY OSS, IN A FOG, HEADACHE, OFF BALANCE Procedures: 2-D Echocardiogram - Type of Care/Length of Stay Estimated LOS: Convalescent Care Less Than 30 days Type of Care Needed: Skilled Rehab Potential: Fair Prognosis: Fair - Additional Orders/Day of Discharge Day of Discharge: 05/11/19 - Dietary and Speech Recommendations Dietitian Recommendations/Changes: When medically appropriate recommend a liberal regular diet with modifications per [place]. If NPO duration expected prolonged d/t dysphagia, rec nutrition support via TF - please consult for rec prn Speech Linguistic Eval Summary: The patient is an 84 year old male who presented to the ED on 05/07/2019 d/t reported weakness, dysarthria and expressive aphasia. Per family, patient has a past medical history of eye stroke resulting in right eye blindness, as well as a history of depression, anxiety, hyperlipidemia, and GERD. RN dysphagia screening failed. Respiratory standards met. Oxygenating on room air. MRI was negative for acute CVA. Pt was febrile overnight w/ suspected metabolic encephalopathy given current weakness, and expressive deficits. Neuro consulted. Prior to admission, the patient was functionally independent. 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 Per family, the patient was cognitively intact, although the report a slight/slow decline in memory over the past 5 years. Family additionally reports that prior to this hospitalization, his speech was clear and intelligible at baseline. Informal cognitive-linguistic evaluation completed this date. This patient presents w/ moderate to severe dysarthria secondaty to oral weakness and reduced breath support/vocal intesnity, mild expressive aphasia and mild to moderate receptive language deficits. The patient is oriented to name, age, , place and month. Initially gave wrong year, but was able to independently self-correct. Not oriented to current date or day of the week but indicated that he would typically look at his watch to confirm the date. The patient was noted to be very easily distracted by external stimuli. Excused family from the room for evaluation completion. Pt demonstrated good comprehension of simple and complex yes/no ?s w/ 8/8 accuracy. Executed 1 step commands w/ 3/3 accuracy, 2 step w/ 2/3 accuracy, unable to retain info for accurate execution of 3 step commands. Immediate recall of 3 word sequence: 1 out of 3 recalled, unable to recall any additional when given repetitions of word sequence and descriptive category prompting. The patient admitted ?I?ve had trouble with that kind of thing for 2-3 years?. Problem solving WNL. Able to read and demonstrate comprehension of words and sentences w/ min prompting d/t inattention. Confrontation naming 9/10 accuracy. Able to name 10 items belonging to a concrete category w/in a 60 second time constraint. Increased word retrieval deficits noted during conversation based assessment w/ occasional anomia and sound substitutions likely attributed to severity of dysarthria. Verbal expression intelligible approx 25-30% of the time w/ unknown topics. Significantly slowed processing time and responsiveness w/ repetition of questions and instructions needed to improve comprehension. Will follow for ongoing assessment and treatment of the above listed deficits in cognitive-linguistic function, pending determination of etiology of acute onset of symptomology. Patient and family education completed re: plan of care w/ all verbalizing understanding/agreement. - Follow Up Care Primary Care Physician: Jak Mahmood DO [Primary Care Provider] - 1 Week Please follow up with your Primary Care Physician in: 2 weeks
[2019-05-11 11:22] VITALS: PULSE 50
--- NOTE | 2019-05-11 13:12 | NURSING ---
Report called to nurse at [facility].
--- NOTE | 2019-05-11 13:48 | PCM.DC.SUM ---
<Gil iPnto - Last Filed: 05/11/19 13:48> Discharge Date and Diagnosis Date of Admission: 05/07/19 Date of Discharge: 05/11/19 - Primary Discharge Diagnosis Acute metabolic encephalopathy 2/2 suspected acute pyelonephritis Dysphagia Dementia Hx Stroke Hiatal hernia GERD Depression/Anxiety HLD - Secondary Discharge Diagnosis Chronic Problems Dementia (Chronic) Dysphagia (Chronic) Hyperlipidemia (Chronic) HTN (hypertension) (Chronic) GERD (gastroesophageal reflux disease) (Chronic) Depression with anxiety (Chronic) Generalized weakness (Chronic) Hospital Course and Treatment Imaging Results: IMAGING: CT/Brain/Head without Contrast IMPRESSION: Chronic involutional changes of the brain. MRI/Brain without Contrast IMPRESSION: No acute intracranial abnormality. Moderate chronic microvascular ischemic changes. Echo: Interpretation Summary The estimated ejection fraction is 75 %. Normal diastology for age. Bubble contrast study negative for right to left interatrial shunt. MRI/MRA Head ONLY without Contrast IMPRESSION: No occlusion or significant stenosis. 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 Further evaluation with sonography is recommended. RAD/Chest PA and Lateral IMPRESSION: No acute cardiopulmonary findings CT/Abdomen/Pelvis WITH Contrast IMPRESSION: Sigmoid diverticulosis. No evidence of acute inflammatory changes. Mild degree of bilateral perinephric stranding. Consultations: Neurology - [facility] Operations: None Procedures: 2-D Echocardiogram Summary of Care Provided: Hospital Course: The patient is a 84 year old M with pmhx of dementia, prior stroke with residual right eye blindness, HLD, hiatal hernia, GERD, anxiety/depression, who presented to the ER with new onset of severe dysarthria and expressive aphasia with drooling starting on the day of presentation. He came to the ER and CT brain showed chronic changes and some hypertension. Initially there was no fever, there was no leukocytosis, UA was negative. The patient was admitted to the PCU with concern for an acute stroke. His dysarthria was severe. PT OT and ST evals were ordered. He also had significant generalized non focal weakness. MRI of the brain was negative. MRA head and neck were negative. Echocardiogram was unremarkable. He developed fevers up to 103.3 while here. He c/o of a chronic cough although did not have SOB or O2 requirement. CXR was negative. He had no nuchal rigidity, neck pain or headache. Neurology was consulted and felt that the neurologic changes were 2/2 to the fever. As he had a hx of diverticulitis a CT abdomen was obtained. This showed BL perinephric stranding. He was started on rocephin empirically for suspected pyelonephritis. Blood cultures were taken - these are negative to date. Once started on rocephin, his dysarthria and expressive aphasia improved, although they are not yet completely back to his prior. Also of note while here he did poorly with speech therapy. He has underlying dysphagia and will require a modified diet going forward with the need for additional speech therapy - nectar thick liquids and pureed food. He continued to be very weak and SNF was recommended. he was accepted at [facility]. He was discharged in stable condition. He will need to complete a total of 14 days of abx - switched to PO cefdinir. He will need follow up with his PCP in 2 weeks. This patient was seen by Gil Pinto PA-C under the supervision of Dr. Goode. [] - Physical Exam General: Alert, Oriented x3, Cooperative HEENT: Atraumatic, PERRLA, EOMI, Normocephalic Neck: Supple, No JVD, Negative Carotid Bruits Lungs: Clear to auscultation, Normal air movement Cardiovascular: Regular rate, No murmurs Abdomen: Bowel Sounds Present, Soft, Non Tender Extremities: No edema, Capillary Refill Less than 3 Seconds Skin: No rashes, No breakdown Musculoskeletal: No Tenderness to Palpation of Joints or Extremities, - - generalized weakness upper and lower ext. Neurological: Cranial nerves II-XII grossly intact, - - slow to respond, muffled speech, poor attention, difficulty with word finding. Psych/Mental Status: Normal Affect, Appropriate, Alert and oriented to time, place, person, mood and affect Vital Signs Temp Pulse Resp BP Pulse Ox 97.8 F 50 L 16 142/71 H 98 05/11/19 08:45 05/11/19 11:22 05/11/19 08:45 05/11/19 08:45 05/11/19 08:45 Oxygen Delivery Method Room Air Weight: 143 lb 1.28 oz Body Mass Index (BMI) 21.7 Intake and Output for Last 24 Hours 05/09/19 05/10/19 05/11/19 23:59 23:59 23:59 Intake Total 3130.01 / 3130.01 2701.67 / 2701.67 2045. / 2045. Output Total 450 / 450 675 / 675 Balance 2680.01 / 2680.01 2025. / 2025.2045. / Microbiology Past 72 Hours 05/08/19 15:00 Blood Culture - Preliminary Blood Culture (Wb) - Anticubital Left No growth in 48 hours. 05/08/19 14:50 Blood Culture - Preliminary Blood Culture (Wb) - Anticubital Right No growth in 48 hours. 05/08/19 20:10 Respiratory Panel (PCR) - Final Mucosa - Nasopharyngeal Discharge Diet: Low fat/ Low Cholesterol, 2000 mg Sodium Diet, - - modified solids and liquids per speech therapy Discharge Activity: May Not Drive Home Medications: Medications to take at Discharge Multivitamins,Therapeutic [Multivitamin] 1 tablet PO DAILY 01/13/16 Psyllium [Metamucil] 1 packet PO DAILY 01/13/16 Pyridoxine HCl [Vitamin B6] 100 mg PO DAILY 01/13/16 Flaxseed Oil/Watrous 3,6,9 [Sv Flaxseed Oil 1,300 mg Sftgl] 1 each PO DAILY 04/12/16 Omeprazole [Prilosec] 20 mg PO DAILY 04/12/16 Cholecalciferol (Vitamin D3) [Vitamin D3] 5,000 unit PO DAILY 04/13/18 Cyanocobalamin (Vitamin B-12) [Vitamin B-12] 2,000 mcg PO DAILY 04/13/18 Simvastatin [Zocor] 20 mg PO DAILY 04/13/18 Sertraline HCl 50 mg PO DAILY 12/10/18 Acetaminophen [Tylenol Tablet] 650 mg PO Q6H PRN PRN tab 05/11/19 Cefdinir [Omnicef [equiv]] 300 mg PO Q12H #22 cap 05/11/19 Following Prescrptions Were Given to Patient: Cefdinir [Omnicef [equiv]] 300 mg PO Q12H #22 cap Primary Care Physician: Jak Mahmood DO [Primary Care Provider] - 1 Week Please follow up with your Primary Care Physician in: 2 weeks Patient Instructions: GERD (Adult) Disposition: Intermediate facility Minutes spent on discharge:: 35 Patient Condition:: Stable Medical Necessity - Tobacco Use Smoking Status: Never smoker Tobacco Use: Secondhand Meaningful Use Info Meaningful Use Diagnoses (Choose all that apply): None applicable <Vanessa Goode E - Last Filed: 05/11/19 14:10> Discharge Date and Diagnosis - Secondary Discharge Diagnosis Chronic Problems Dementia (Chronic) Dysphagia (Chronic) Hyperlipidemia (Chronic) HTN (hypertension) (Chronic) GERD (gastroesophageal reflux disease) (Chronic) Depression with anxiety (Chronic) Generalized weakness (Chronic) Hospital Course and Treatment Summary of Care Provided: Hospitalist note: Discharge summary above reviewed and concur with the above discharge and treatment plan. Patient was presented to the emergency room because of confusion and slurred speech. Initially, the concern is that the patient may have a stroke. CT scan brain done on admission showed no acute findings. MRI brain again showed no acute infarct or hemorrhage. MRA of the head and neck showed no evidence of significant vascular disease or stenosis. 2D echocardiogram revealed ejection fraction of 75%, bubble contrast study that was negative for [id number] shunt. Acute stroke ruled out. During this hospital stay, patient developed a fever and initially, there was no obvious source of infection. Chest x-ray done and showed no acute infiltrate or consolidation. Urinalysis showed no evidence of UTI. Patient denied any symptoms suggestive of infection. He denies urinary symptoms, cough, sputum production, abdominal pain, diarrhea. Patient had significant history of recurrent diverticulitis and for this reason, CT scan abdomen and pelvis with oral and IV contrast revealed sigmoid diverticulosis without evidence of diverticulitis but revealed a mild degree of bilateral perinephric stranding. Patient was started on IV Rocephin for suspected acute bilateral pyelonephritis. With IV Rocephin, patient remained without fever. Blood culture showed no growth in 48 hours. Respiratory panel for viruses were negative. His speech improved. Patient discharged to group home facility in a stable condition, discharged on Omnicef to complete course of antibiotics, continued on his previous home medications without any changes, recommended follow-up with PCP in 1 week. - Physical Exam General: Alert, Oriented x3, Cooperative, dysarthric. HEENT: Atraumatic, PERRLA, EOMI. Neck: Supple, No JVD, Negative Carotid Bruits, Trachea Midline, Thyroid Normal. No neck stiffness. Lungs: Diminished breath sounds bilateral, otherwise clear, No rhonchi, No wheeze, No rales. Cardiovascular: Regular rate, Regular Rhythm, Normal S1, Normal S2, PMI Normal. Abdomen: Bowel Sounds Present, Soft, Non Tender, Non-Distended, No Hepato-splenomegaly. Extremities: No clubbing, No cyanosis, No edema Skin: No rashes, No breakdown Neurological: Cranial nerves are intact, global weakness, no focal deficit, neuro grossly intact. Vital signs are stable. This note was generated with [employer] dictation software. It may contain incorrect words, spelling, and punctuation that were not noted in checking the note before signing. - Physical Exam Vital Signs Temp Pulse Resp BP Pulse Ox 97.8 F 50 L 16 142/71 H 98 05/11/19 08:45 05/11/19 11:22 05/11/19 08:45 05/11/19 08:45 05/11/19 08:45 Oxygen Delivery Method Room Air Weight: 143 lb 1.28 oz Body Mass Index (BMI) 21.7 Intake and Output for Last 24 Hours 05/09/19 05/10/19 05/11/19 23:59 23:59 23:59 Intake Total 3130.01 / 3130.01 2701.67 / 2701.67 2046.67 / 2046.67 Output Total 450 / 450 675 / 675 Balance 2680.01 / 2680.01 2026.67 / 2026.67 2046.67 / 2046.67 Microbiology Past 72 Hours 05/08/19 15:00 Blood Culture - Preliminary Blood Culture (Wb) - Anticubital Left No growth in 48 hours. 05/08/19 14:50 Blood Culture - Preliminary Blood Culture (Wb) - Anticubital Right No growth in 48 hours. 05/08/19 20:10 Respiratory Panel (PCR) - Final Mucosa - Nasopharyngeal Disposition: Intermediate facility Minutes spent on discharge:: 28 Patient Condition:: Stable Meaningful Use Info Meaningful Use Diagnoses (Choose all that apply): None applicable Code Visit OBSV E&M: 98543 Observation care discharge
== END 2019-05-11 13:30 | disposition skilled nursing facility (03) | DRG 689 ==
LOC: ED 15:05 → MS2 16:32 → PCU 17:33
PROVIDERS: Nurse Practitioner Family; Physician Assistant; Admitting Provider Family Medicine; Emergency Provider Emergency Medicine; Family Provider Student in an Organized Health Care Education/Training Program; PCP Student in an Organized Health Care Education/Training Program; Referring Provider Family Medicine; Visit Provider Hospitalist
DX: N10 Acute pyelonephritis (principal); G93.41 Metabolic encephalopathy; I69.398 Other sequelae of cerebral infarction; H54.61 Unqualified visual loss, right eye, normal vision left eye; K44.9 Diaphragmatic hernia without obstruction or gangrene; K21.9 Gastro-esophageal reflux disease without esophagitis; E78.5 Hyperlipidemia, unspecified; F03.90 Unspecified dementia, unspecified severity, without behavioral disturbance, psychotic disturbance, mood disturbance, and anxiety; R13.10 Dysphagia, unspecified; I10 Essential (primary) hypertension; F41.8 Other specified anxiety disorders; R53.1 Weakness; R47.1 Dysarthria and anarthria
CPT/HCPCS: 36415; 70450; 70544; 70547; 70551; 71046; 74177; 80048; 80053; 80061; 80076; 81001; 82140; 83690; 84484; 85025; 87040; 87633; 92523; 92526; 92610; 93005; 93306; 94762; 97116; 97163; 97166; 97530; 99285; J7030; Q9967; A4216; J0696